=== PATIENT | male | born 1955 | race Caucasian/White ===

== ENCOUNTER 2019-05-18 00:33 | Inpatient (IN) | payer MEDICAID ==
[2019-05-18] VITALS (18 sets, daily range): BP systolic 103–157; BP diastolic 53–79
[~2019-05-18] VITALS: Ht 190.5 cm; Wt 103.1 kg
[2019-05-18] MEDS ORDERED: piperacillin/tazo 3.375gm/50ml 50 ML IV ONE ×2 (01:05→03:00)
--- NOTE | 2019-05-18 01:06 | NUR ---
PT RECEIVED ZOSYN 3.375G AT [facility] AT APPROX 10 PM , PER MD DIETZ WILL RETIME FOR 299.
[2019-05-18] MEDS ORDERED: METF1000 PO (01:18)
[2019-05-18] MEDS ORDERED: INSU100I9 SQ (01:18)
[2019-05-18] MEDS ORDERED: INSU100I31 SQ (01:18)
[2019-05-18] MEDS ORDERED: SITA1TBM7 PO (01:18)
[2019-05-18] MEDS ORDERED: ALB0.5UD IH (01:18)
[2019-05-18] MEDS ORDERED: INSU100V43 SUBCUT (01:18)
[2019-05-18 01:19] LABS: BASOPHILS # (AUTO) 0.1 X10'3 (0-0.2); BASOPHILS % (AUTO) 0.8 % (0-1); EOSINOPHILS # (AUTO) 0.3 X10'3 (0-0.9); EOSINOPHILS % (AUTO) 1.8 % (0-6); HEMATOCRIT 33.6 % (42.0-52.0); HEMOGLOBIN 11.3 g/dl (14.0-17.9); LYMPHOCYTES % (AUTO) 12.4 % (21-51); MEAN CORPUSCULAR HEMOGLOBIN 27.8 PG (27.0-31.0); MEAN CORPUSCULAR HGB CONC 33.5 g/dL (33.0-36.5); MEAN CORPUSCULAR VOLUME 82.9 FL (78-98); MEAN PLATELET VOLUME 8.2 FL (7.4-10.4); MONOCYTES # (AUTO) 1.3 X10'3 (0-0.9); MONOCYTES % (AUTO) 7.8 % (2-12); NEUTROPHILS # (AUTO) 12.4 X10'3 (1.8-7.7); NEUTROPHILS % (AUTO) 77.2 % (42-75); PLATELET COUNT 349 X10'3 (140-440); RED BLOOD COUNT 4.06 X10'6 (4.70-6.10); RED CELL DISTRIBUTION WIDTH 14.7 % (11.5-14.5)
[2019-05-18] MEDS ORDERED: normal saline 1000ml 1,000 ML IV ONE (01:24)
[2019-05-18 01:38] LABS: PARTIAL THROMBOPLASTIN TIME 31 SECONDS (22-32)
[2019-05-18] MEDS ORDERED: morphine 4 MG/ML inj SYRINge IV ONE (01:40)
[2019-05-18] MEDS ORDERED: ondansetron/PF 4mg/2ml inj IV ONE (01:40)
[2019-05-18 01:46] LABS: ALANINE AMINOTRANSFERASE 18 U/L (12-78); ALBUMIN 2.1 G/DL (3.4-5.0); ALBUMIN/GLOBULIN RATIO 0.5 (1.1-1.5); ALKALINE PHOSPHATASE 78 IU/L (46-116); ANION GAP 8 (8-16); ASPARTATE AMINO TRANSFERASE 20 U/L (10-37); BILIRUBIN,TOTAL 0.4 MG/DL (0.1-1.0); BLOOD UREA NITROGEN 9 MG/DL (7-18); BUN/CREATININE RATIO 8.7 (5.4-32.0); CALCIUM 7.4 MG/DL (8.5-10.1); CHLORIDE 105 MMOL/L (99-107); CREATININE 1.03 MG/DL (0.60-1.10); GLUCOSE 306 MG/DL (70-104); MAGNESIUM 1.4 MG/DL (1.5-2.4); POTASSIUM 3.9 MMOL/L (3.5-5.1); SODIUM 138 MMOL/L (135-145); TOTAL CARBON DIOXIDE 25.5 MMOL/L (24-32); TOTAL PROTEIN 6.7 G/DL (6.4-8.2); eGFR 73 ML/MIN
[2019-05-18] MEDS ORDERED: morphine 2 MG/ML inj. syringe IV ONE (01:50)
[2019-05-18] MEDS: normal saline 1000ml 1,000 ML IV SCH ×4 (01:52→22:32)
[2019-05-18] MEDS ORDERED: ondansetron/PF 4mg/2ml inj IV PRN ×2 (01:55→10:40)
[2019-05-18] MEDS ORDERED: morphine 2 MG/ML inj. syringe IV PRN (01:55)
[2019-05-18] MEDS ORDERED: dextrose 50%-water 50ml dispensing syringe IV PRN ×4 (01:55→11:20)
[2019-05-18] MEDS ORDERED: mag hydrox/Alum hydrox/simeth 30ml oral suspension PO PRN (01:55)
[2019-05-18] MEDS ORDERED: MESSAGE TO PHARMACY PO ONE ×2 (01:55→11:20)
[2019-05-18] MEDS ORDERED: glucagon, human recombinant 1mg kit SUBCUT PRN ×2 (01:55→11:20)
[2019-05-18] MEDS ORDERED: dextrose ORAL solution 15 GM/59 ML bottle PO PRN ×4 (01:55→11:20)
[2019-05-18] MEDS ORDERED: albuterol 2.5 MG/3 ML nebule NEB PRN (02:00)
--- NOTE | 2019-05-18 03:10 | NUR ---
Received report from Lars SCHAFER pt ambulated to restroom, then to hospital bed. Hooked pt up to NS@ 100mL/hr, as well as 2L of O2 via NC, assessed pt. Pt has reddened edematous R. testicle, no other skin issues. A&Ox4
--- NOTE | 2019-05-18 03:28 | NUR ---
Spoke with Paz in pharmacy regarding pts Zosyn, pts 0300am dose was ordered to run at 100mL/hr I doubled check to make sure I did not need to run it at 12.5mL/hr. Paz stated to run this dose at the scheduled 100mL/hr and the next dose will resume as normal at the 12.5mL/hr.
[2019-05-18] MEDS: morphine 2 MG/ML inj. syringe IV PRN ×2 (05:33→23:08)
--- NOTE | 2019-05-18 06:05 | NUR ---
gave report to Shhaida SCHAFER pt is attempting to rest, call light and items of freq use within reach, Vanco running@ 200mL/hr
--- NOTE | 2019-05-18 06:12 | NUR ---
Patient in room COREEN 350. I have received report from Regina SCHAFER and had the opportunity to ask questions and assume patient care.
[2019-05-18] MEDS: lactobacillus rhamnosus 10,000 MMU CELLS/CAPSULE PO SCH ×2 (07:18→19:56)
[2019-05-18] MEDS: acetaminophen 325mg tablet PO PRN ×3 (07:29→23:06)
--- NOTE | 2019-05-18 07:30 | NUR ---
paged Dr Alvarado regarding pt going to OR at 0830 and regarding pt having a fever of 102.9. I gave pt 650mg of Tylenol. Also let him know that [facility] called to let us know that pt was positive for gram positive cocci clusters x 4 bottles. Spoke to charge and informed her about results.
[2019-05-18] MEDS: insulin Lispro (HumaLOG) vial - multi-dose SQ SCH ×3 (08:04→19:59)
--- NOTE | 2019-05-18 08:15 | NUR ---
Problems reprioritized. Patient report given, questions answered & plan of care reviewed with Creg RN in recovery.
--- NOTE | 2019-05-18 08:15 | NUR ---
OR tech here to pickle pumper pt to got OR, tech informed of pt's positive results. Pt given 5 units of insulin and still waiting for Dr. Soni to call back.
[2019-05-18] MEDS ORDERED: levoFLOXACIN-Levaquin 500mg/D5 100 ML IV ONE (09:03)
[2019-05-18] MEDS ORDERED: BUPIVAcaine 0.5% inj/PF 30 ML ONE (09:03)
[2019-05-18] MEDS ORDERED: etomidate 2mg/ml inj. ONE (09:06)
[2019-05-18] MEDS ORDERED: sevoflurane 250ml liquid IH ONE (09:06)
[2019-05-18] MEDS ORDERED: midazolam 2 mg/2 ml injection ONE (09:07)
[2019-05-18] MEDS ORDERED: fentaNYL /PF 50mcg/ml 5ml ampule ONE (09:08)
[2019-05-18] MEDS ORDERED: BUPIVAcaine 0.5% inj/PF 30 ml vial IJ ONE (09:43)
--- NOTE | 2019-05-18 10:00 | NUR ---
Problems reprioritized. Patient report given, questions answered & plan of care reviewed with Joselo RN in ICU.
[2019-05-18] MEDS ORDERED: ringers solution, lacted 1,000 ML IV SCH (10:38)
[2019-05-18] MEDS ORDERED: morphine 4 MG/ML inj SYRINge IV PRN ×2 (10:40)
[2019-05-18] MEDS ORDERED: proCHLORperazine 10 MG/2 ml inj IV PRN (10:40)
[2019-05-18] MEDS ORDERED: meperidine/PF 25mg/ml syringe IV PRN ×3 (10:40)
[2019-05-18] MEDS ORDERED: insulin regular, human 10 units/0.1 ml syringe IV ONE (10:40)
--- NOTE | 2019-05-18 10:42 | NUR ---
Received from OR via ICU BED, accompanied by AnestheOlogist DEANNE and report given by Anesthesiolgist. PATIENT WITH 20G PIV IN RIGHT UE AND 18G PIV IN LEFT UE RUNNING LR AT 100. MEDICATED BY ANESTHESIA. PATIENT WITH JOCK CUP DRESSING THAT HAS SHADOWING OF PINK DRAINAGE PRESENT. CINTRON CATHETER PRESENT WITH 500C CLEAR YELLOW URINE PRESENT. VSS AT THIS TIME. 10L MASK ON WITH 100% SATURATIONS. Addendum: 05/18/19 at 1058 by Reymundo Garrison RN, RN Amended: Links added.
[2019-05-18] MEDS ORDERED: piperacillin/tazo 3.375gm/50ml 50 ML IV SCH (11:00)
--- NOTE | 2019-05-18 11:12 | NUR ---
ALL CRITERIA FOR TRANSFER TO THE FLOOR HAS BEEN ACHIEVED. VSS. BED LOW, CALL LIGHT AND VS. SET IN PLACE. RN PRESENT TO ACCEPT CARE. PATIENT RESTING COMFORTABLY IN BED. BELONGINGS SENT WITH PATIENT. DRESSINGS CDI. GILMAR WILKINSON PRESENT TO ASSUME CARE OF PATIENT. CALLED PHARMACY FOR INSULIN. GILMAR WILKINSON TO ADMINISTER. VSS, MEDICATED FOR PAIN. Addendum: 05/18/19 at 1117 by Reymundo Lewis - GILMAR SCHAFER Amended: Links added.
--- NOTE | 2019-05-18 11:13 | NUR ---
Received pt from recovery nurseReymundo RN. Pt is 100% SpO2 on simple face mask, drowsy, BP 144/64 (84), sinus tach at 107 bpm.
--- NOTE | 2019-05-18 11:15 | NUR ---
Dr. Pyle in to see pt.
[2019-05-18] MEDS ORDERED: insulin Lispro (HumaLOG) vial - multi-dose SQ SCH (11:20)
[2019-05-18] MEDS ORDERED: fentaNYL/PF 50MCG/1 ML 2ML syringe ONE (11:41)
[2019-05-18] MEDS ORDERED: rocuronium 10mg/ml inj IV ONE (11:42)
[2019-05-18] MEDS ORDERED: glycopyrrolate 0.2mg/ml inj ONE (11:42)
[2019-05-18] MEDS ORDERED: LIDOcaine 2% (20mg/ml) 5ml vial ONE (11:42)
[2019-05-18] MEDS ORDERED: ondansetron/PF 4mg/2ml inj ONE (11:42)
[2019-05-18] MEDS ORDERED: propofol inj 20 ML IV ONE (11:42)
[2019-05-18] MEDS ORDERED: neostigmine methylsulfate 1 MG/ML 10ml vial ONE (11:42)
[2019-05-18] MEDS: ceFAZolin 1GM/D5W- ADD-VANTAGE 50 ML IV SCH ×2 (12:16→16:12)
--- NOTE | 2019-05-18 12:36 | NUR ---
Regular insulin has not arrived from pharmacy. Hyperglycemia protocol ordered.
--- NOTE | 2019-05-18 16:25 | NUR ---
Malnutrition/DM consults: Pt admit w/ scrotal cellulitis and sepsis s/p R orchiectomy per MD note. A1C 11.7. PO 25% carbs first meals other food groups not documented. Pt currently coming out of anaesthesia per MD note. Given pt current wt and lack of further PO hx at this time pt does not meet minimum malnutrition criteria; will continue to monitor this admit. Pt will needs DM and high protein eds once more appropriate post-op. LBM 05/16. Will continue to monitor. Rec: 1. continue carb controlled diet 2. monitor for ONS needs 3. DM/high protein eds once appropriate prior to d/c 4. MVI for wound healing 5. wt per rx Addendum: 05/18/19 at [address] Amended: Links added.
--- NOTE | 2019-05-18 18:20 | NUR ---
Patient in room ICU 2040. I have received report from GILMAR Josue and had the opportunity to ask questions and assume patient care. Patient appears to be sleeping at time of report. Berg catheter in place, patent and draining. patient with PIV's x2 with normal saline infusing at 100ml/hr as ordered.
--- NOTE | 2019-05-18 18:25 | NUR ---
Problems reprioritized. Patient report given, questions answered & plan of care reviewed with GILMAR James.
--- NOTE | 2019-05-18 20:00 | NUR ---
Patient refusing linen change and bed bath for tonight. Patient irritated with staff waking him up to do assessments and patient care. Patient wakes up then falls back to sleep. While RN was checking his IV patient states "I am going to fucking flip out next time you wake me up." Patient educated on patient care activities. Patient refused to be repositioned with pillows, educated on reason for use to prevent skin breakdown.
[2019-05-18] MEDS: insulin glargine (Lantus) pen - multi-dose SQ SCH (20:02)
[2019-05-18] MEDS ORDERED: insulin glargine (Lantus) pen - multi-dose SQ SCH (21:00)
--- NOTE | 2019-05-18 23:00 | NUR ---
Patient moaning in sleep. When asked patient at first states he is not in pain. Patient states that "I need to pee." reminded that he has a urinary catheter in place and that he is making and draining urine. Patient states "okay". Patient appears agitated with patient care activities. Elevated temperature assessed. Told patient that he needed Tylenol for his fever, patient stated "I dont want Tylenol." educated again on reason for medication, patient agreed to take medication. Patient then states that he is having pain 10/10 when asked for location of his pain he states "my scrotum". Patient falls back to sleep, snoring while sleeping. Morphine for moderate pain level administered secondary to nursing judgement.
[2019-05-19] VITALS (24 sets, daily range): BP systolic 106–156; BP diastolic 62–90
[2019-05-19] MEDS: ceFAZolin 1GM/D5W- ADD-VANTAGE 50 ML IV SCH ×3 (00:15→16:13)
[2019-05-19] MEDS ORDERED: VANCOMYCIN LEVEL IV ONE (05:30)
--- NOTE | 2019-05-19 06:30 | NUR ---
Problems reprioritized. Patient report given, questions answered & plan of care reviewed with GILMAR Mariano.
[2019-05-19 06:47] LABS: BASOPHILS # (AUTO) 0.1 X10'3 (0-0.2); BASOPHILS % (AUTO) 0.7 % (0-1); EOSINOPHILS # (AUTO) 0.3 X10'3 (0-0.9); EOSINOPHILS % (AUTO) 2.5 % (0-6); HEMATOCRIT 34.4 % (42.0-52.0); HEMOGLOBIN 11.4 g/dl (14.0-17.9); LYMPHOCYTES # (AUTO) 2.3 X10'3 (1.1-4.8); MEAN CORPUSCULAR HEMOGLOBIN 27.6 PG (27.0-31.0); MEAN CORPUSCULAR VOLUME 83.6 FL (78-98); MEAN PLATELET VOLUME 8.3 FL (7.4-10.4); MONOCYTES % (AUTO) 7.3 % (2-12); NEUTROPHILS # (AUTO) 9.9 X10'3 (1.8-7.7); NEUTROPHILS % (AUTO) 72.5 % (42-75); PLATELET COUNT 342 X10'3 (140-440); RED BLOOD COUNT 4.12 X10'6 (4.70-6.10); RED CELL DISTRIBUTION WIDTH 15.1 % (11.5-14.5); WHITE BLOOD COUNT 13.6 X10'3 (4.5-11.0)
[2019-05-19 07:02] LABS: ALANINE AMINOTRANSFERASE 14 U/L (12-78); ALBUMIN/GLOBULIN RATIO 0.4 (1.1-1.5); ALKALINE PHOSPHATASE 79 IU/L (46-116); ANION GAP 9 (8-16); ASPARTATE AMINO TRANSFERASE 15 U/L (10-37); BILIRUBIN,TOTAL 0.4 MG/DL (0.1-1.0); BLOOD UREA NITROGEN 7 MG/DL (7-18); BUN/CREATININE RATIO 7.9 (5.4-32.0); CHLORIDE 104 MMOL/L (99-107); CREATININE 0.89 MG/DL (0.60-1.10); GLUCOSE 247 MG/DL (70-104); POTASSIUM 3.7 MMOL/L (3.5-5.1); SODIUM 138 MMOL/L (135-145); TOTAL PROTEIN 7.1 G/DL (6.4-8.2); eGFR 87 ML/MIN
[2019-05-19] MEDS: normal saline 1000ml 1,000 ML IV SCH (07:52)
[2019-05-19] MEDS: lactobacillus rhamnosus 10,000 MMU CELLS/CAPSULE PO SCH ×2 (08:09→19:55)
[2019-05-19] MEDS: insulin Lispro (HumaLOG) vial - multi-dose SQ SCH ×2 (08:58→13:11)
[2019-05-19] MEDS: morphine 2 MG/ML inj. syringe IV PRN ×3 (14:27→20:23)
--- NOTE | 2019-05-19 18:31 | NUR ---
Patient in room ICU 2040. I have received report from Madison Lr RN and had the opportunity to ask questions and assume patient care.
[2019-05-19] MEDS: insulin glargine (Lantus) pen - multi-dose SQ SCH (21:43)
--- NOTE | 2019-05-19 22:27 | NUR ---
Dinner INSULIN MISSED dinner Humalog was missed. pt recieved dinner tray late and did not have humalog in [facility], sent message to pharmacy and called multiple times. by the time the insulin was on the unit it was time for 2100 BG test. called Brittney De La Fuente SENIOR WATER RESOURCES ENGINEER with this information, she advised that i just give lantus for coverage.
[2019-05-20] VITALS (19 sets, daily range): BP systolic 117–163; BP diastolic 61–95
[2019-05-20] MEDS: ceFAZolin 1GM/D5W- ADD-VANTAGE 50 ML IV SCH ×2 (00:06→08:07)
[2019-05-20] MEDS: normal saline 1000ml 1,000 ML IV SCH (00:16)
[2019-05-20 04:56] LABS: BASOPHILS # (AUTO) 0.1 X10'3 (0-0.2); BASOPHILS % (AUTO) 0.6 % (0-1); EOSINOPHILS # (AUTO) 0.3 X10'3 (0-0.9); EOSINOPHILS % (AUTO) 1.9 % (0-6); HEMOGLOBIN 12.1 g/dl (14.0-17.9); LYMPHOCYTES # (AUTO) 1.7 X10'3 (1.1-4.8); LYMPHOCYTES % (AUTO) 13.2 % (21-51); MEAN CORPUSCULAR HEMOGLOBIN 27.9 PG (27.0-31.0); MEAN CORPUSCULAR HGB CONC 33.7 g/dL (33.0-36.5); MEAN CORPUSCULAR VOLUME 82.7 FL (78-98); MEAN PLATELET VOLUME 8.3 FL (7.4-10.4); MONOCYTES # (AUTO) 1.1 X10'3 (0-0.9); MONOCYTES % (AUTO) 8.2 % (2-12); NEUTROPHILS # (AUTO) 10.1 X10'3 (1.8-7.7); NEUTROPHILS % (AUTO) 76.1 % (42-75); PLATELET COUNT 361 X10'3 (140-440); RED BLOOD COUNT 4.35 X10'6 (4.70-6.10); RED CELL DISTRIBUTION WIDTH 15.2 % (11.5-14.5); WHITE BLOOD COUNT 13.2 X10'3 (4.5-11.0)
[2019-05-20 05:13] LABS: ALANINE AMINOTRANSFERASE 13 U/L (12-78); ALBUMIN 1.9 G/DL (3.4-5.0); ALBUMIN/GLOBULIN RATIO 0.3 (1.1-1.5); ALKALINE PHOSPHATASE 86 IU/L (46-116); ANION GAP 9 (8-16); ASPARTATE AMINO TRANSFERASE 16 U/L (10-37); BILIRUBIN,TOTAL 0.4 MG/DL (0.1-1.0); BLOOD UREA NITROGEN 7 MG/DL (7-18); BUN/CREATININE RATIO 6.9 (5.4-32.0); CALCIUM 8.5 MG/DL (8.5-10.1); CHLORIDE 101 MMOL/L (99-107); CREATININE 1.01 MG/DL (0.60-1.10); GLUCOSE 281 MG/DL (70-104); SODIUM 138 MMOL/L (135-145); TOTAL CARBON DIOXIDE 27.6 MMOL/L (24-32); TOTAL PROTEIN 7.5 G/DL (6.4-8.2); eGFR 75 ML/MIN
--- NOTE | 2019-05-20 06:44 | NUR ---
Problems reprioritized. Patient report given, questions answered & plan of care reviewed with Jackelyn Stone RN.
--- NOTE | 2019-05-20 06:49 | NUR ---
Patient in room ICU 2040. I have received report from GILMAR Arboleda and had the opportunity to ask questions and assume patient care.
[2019-05-20] MEDS ORDERED: VANCOMYCIN LEVEL IV ONE (07:30)
[2019-05-20] MEDS: lactobacillus rhamnosus 10,000 MMU CELLS/CAPSULE PO SCH ×2 (08:08→21:51)
[2019-05-20] MEDS: insulin Lispro (HumaLOG) vial - multi-dose SQ SCH ×2 (08:31→15:09)
[2019-05-20] MEDS: morphine 2 MG/ML inj. syringe IV PRN ×3 (09:29→22:03)
[2019-05-20] MEDS ORDERED: JANUMET PO SCH (11:40)
[2019-05-20] MEDS ORDERED: insulin Lispro (HumaLOG) vial - multi-dose SQ SCH (12:00)
--- NOTE | 2019-05-20 14:39 | NUR ---
Reassessment: Pt admit with scrotal cellulitis and sepsis s/p right orchiectomy per MD note. A1C 11.7, will need written DM education handout with verbal review and referral to Sunday DM education class. Will also need written protein education handout r/t surgical wound heal. Patient is eating well, 100% PO intake of carb controlled diet. LBM 05/16. Will continue to monitor. Recommend: 1. continue carb controlled diet 2. double protein per pt request 3. DM/high protein eds once appropriate prior to d/c 4. wt per rx Addendum: 05/20/19 at [address] Amended: Links added.
--- NOTE | 2019-05-20 14:59 | NUR ---
Report received from ELECTRIC DETECTOR OPERATORGILMAR Xiong
--- NOTE | 2019-05-20 14:59 | NUR ---
Problems reprioritized. Patient report given, questions answered & plan of care reviewed with Michellesurgical endoscopist.
--- NOTE | 2019-05-20 15:00 | NUR ---
confirmed with Dr.Romero cherry to change testicular dressing; 4x4s within jock strap saturated with old dried drainage,carefully removed after loosening with sterile saline,meaghan drain in place,sutures intact replaced 4x4s and jock strap elastic to hold in place,pt tolerated well
--- NOTE | 2019-05-20 18:35 | NUR ---
Patient in room COREEN 352. I have received report from Chip SCHAFER and had the opportunity to ask questions and assume patient care.
--- NOTE | 2019-05-20 18:50 | NUR ---
Problems reprioritized. Patient report given, questions answered & plan of care reviewed with Bonnie SCHAFER.
[2019-05-20] MEDS ORDERED: metFORMIN 500mg tablet PO SCH (20:00)
[2019-05-20] MEDS: insulin glargine (Lantus) pen - multi-dose SQ SCH (22:45)
[2019-05-21] VITALS: BP 149/77
[2019-05-21] MEDS: morphine 2 MG/ML inj. syringe IV PRN ×2 (02:32→19:29)
[2019-05-21 05:05] LABS: BASOPHILS # (AUTO) 0.1 X10'3 (0-0.2); BASOPHILS % (AUTO) 1.3 % (0-1); EOSINOPHILS # (AUTO) 0.5 X10'3 (0-0.9); EOSINOPHILS % (AUTO) 4.6 % (0-6); HEMATOCRIT 32.3 % (42.0-52.0); HEMOGLOBIN 10.8 g/dl (14.0-17.9); LYMPHOCYTES # (AUTO) 1.9 X10'3 (1.1-4.8); LYMPHOCYTES % (AUTO) 16.8 % (21-51); MEAN CORPUSCULAR HEMOGLOBIN 27.6 PG (27.0-31.0); MEAN CORPUSCULAR HGB CONC 33.5 g/dL (33.0-36.5); MEAN CORPUSCULAR VOLUME 82.5 FL (78-98); MEAN PLATELET VOLUME 8.5 FL (7.4-10.4); MONOCYTES % (AUTO) 9.1 % (2-12); NEUTROPHILS # (AUTO) 7.6 X10'3 (1.8-7.7); NEUTROPHILS % (AUTO) 68.2 % (42-75); PLATELET COUNT 344 X10'3 (140-440); RED BLOOD COUNT 3.91 X10'6 (4.70-6.10); RED CELL DISTRIBUTION WIDTH 15.1 % (11.5-14.5); WHITE BLOOD COUNT 11.1 X10'3 (4.5-11.0)
[2019-05-21 05:41] LABS: ALANINE AMINOTRANSFERASE 13 U/L (12-78); ALBUMIN 1.7 G/DL (3.4-5.0); ALBUMIN/GLOBULIN RATIO 0.3 (1.1-1.5); ALKALINE PHOSPHATASE 79 IU/L (46-116); ANION GAP 8 (8-16); ASPARTATE AMINO TRANSFERASE 16 U/L (10-37); BILIRUBIN,TOTAL 0.4 MG/DL (0.1-1.0); BLOOD UREA NITROGEN 8 MG/DL (7-18); BUN/CREATININE RATIO 9.9 (5.4-32.0); CHLORIDE 100 MMOL/L (99-107); CREATININE 0.81 MG/DL (0.60-1.10); GLUCOSE 222 MG/DL (70-104); POTASSIUM 3.8 MMOL/L (3.5-5.1); SODIUM 135 MMOL/L (135-145); TOTAL CARBON DIOXIDE 27.4 MMOL/L (24-32); eGFR > 90 ML/MIN
--- NOTE | 2019-05-21 05:48 | NUR ---
Patient in room COREEN 352. I have received report from Chip SCHAFER and had the opportunity to ask questions and assume patient care.
--- NOTE | 2019-05-21 06:17 | NUR ---
Reported off to Chip SCHAFER
--- NOTE | 2019-05-21 06:48 | NUR ---
Patient in room CORE[facility] 352. I have received report from Bonnie SCHAFER and had the opportunity to ask questions and assume patient care.
[2019-05-21 07:00] VITALS: BP 129/77
[2019-05-21] MEDS: lactobacillus rhamnosus 10,000 MMU CELLS/CAPSULE PO SCH ×3 (08:00→19:28)
[2019-05-21] MEDS: insulin Lispro (HumaLOG) vial - multi-dose SQ SCH ×3 (08:20→19:35)
[2019-05-21] MEDS: magnesium hydroxide 30ml (MOM) UD suspension PO PRN (10:07)
--- NOTE | 2019-05-21 10:13 | NUR ---
Milk of magnesia given for constipation. I have told the patient that Dr. Perry's office would like him to fill out and sign the paperworks needed to get the follow up appointment scheduled. Patient states "I'll do it later!" Patient appears sleepy at this time
[2019-05-21 11:00] VITALS: BP 129/87
--- NOTE | 2019-05-21 13:11 | NUR ---
Patient just ate lunch before the blood sugar was checked. Blood sugar was 163mg/dl post meal. Will cover it based on nutritional dose only at this time. Charge nurse Oneyda mcmahon.
--- NOTE | 2019-05-21 14:53 | NUR ---
F/u: Pt seen by RD for written/verbal DM and high protein eds w/ RD contact information provided. Pt reports uses insulin and passive when RD encouraged getting proper refills as prescribed to help manage DM. PO 100% carb controlled meals meeting needs. Declines further proteins in addition to double proteins already receiving at this time. LBM 05/15; received MoM today for initial bowel care. Will continue to monitor for additional bowel care needs. Recommend: 1. continue carb controlled diet 2. double protein per pt request 3. wt per rx Addendum: 05/21/19 at [address] Amended: Links added.
--- NOTE | 2019-05-21 15:52 | NUR ---
Patient does not want to ambulate and expressed concern of being too weak. Order received from Dr. Pyle to have PT eval
--- NOTE | 2019-05-21 16:08 | NUR ---
GILMAR Saunders, stated in report that pt is at 10L/NC w/ sats in 93%. Dr. Pyle notified. CXR & ABGs ordered. Pt agitated and mildly aggressive, but A&O.
[2019-05-21 16:41] LABS: ABG BASE EXCESS 2.6 mmol/L (-2.0-3.0); ABG HCO3 26.4 mmol/L (22.0-26.0); ABG PCO2 (T) 38.2 mmHg (35.0-45.0); ABG PH (T) 7.458 (7.350-7.450); ABG PO2 (T) 73.3 mmHg (83-108); ALLEN'S TEST Positive; FCOHb 1.2 % (0.5-1.5); FLOW 10 L/min; FO2Hb 94.8 % (94-100); TOTAL HEMOGLOBIN 14.7 G/dl (14.0-17.9)
--- NOTE | 2019-05-21 18:49 | NUR ---
Problems reprioritized. Patient report given, questions answered & plan of care reviewed with Bonnie SCHAFER.
[2019-05-21 19:00] VITALS: BP 156/78
--- NOTE | 2019-05-21 20:10 | NUR ---
Patent ate 41 carbs for dinner. Blood sugars appear to be trending downwards today (0700 - 181, 1200 - 163, 1700 - 92. Called director of agriculture to see if Patient should still receive the dose of 14 (per protocol). Engine Lathe Set Up Operator Tool requested another Blood sugar to be drawn. Patient has since had to x cartoon of non-fat milk and blood sugar up to 215. Will draw HS blood sugar and reevaluate from there
[2019-05-21] MEDS ORDERED: HYDROcodone/acetaminophen 5mg/325mg tablet PO PRN (20:45)
[2019-05-21] MEDS: insulin glargine (Lantus) pen - multi-dose SQ SCH (23:11)
[2019-05-22] VITALS: BP 150/70
[2019-05-22] MEDS: HYDROcodone/acetaminophen 10/325mg tab PO PRN ×3 (01:54→14:06)
[2019-05-22 06:01] LABS: BASOPHILS # (AUTO) 0.1 X10'3 (0-0.2); EOSINOPHILS # (AUTO) 0.6 X10'3 (0-0.9); EOSINOPHILS % (AUTO) 5.4 % (0-6); HEMATOCRIT 33.5 % (42.0-52.0); HEMOGLOBIN 11.1 g/dl (14.0-17.9); LYMPHOCYTES % (AUTO) 17.7 % (21-51); MEAN CORPUSCULAR HEMOGLOBIN 27.5 PG (27.0-31.0); MEAN CORPUSCULAR HGB CONC 33.1 g/dL (33.0-36.5); MEAN CORPUSCULAR VOLUME 83.2 FL (78-98); MEAN PLATELET VOLUME 8.9 FL (7.4-10.4); MONOCYTES # (AUTO) 0.9 X10'3 (0-0.9); MONOCYTES % (AUTO) 8.1 % (2-12); NEUTROPHILS # (AUTO) 7.8 X10'3 (1.8-7.7); NEUTROPHILS % (AUTO) 67.8 % (42-75); PLATELET COUNT 388 X10'3 (140-440); RED BLOOD COUNT 4.03 X10'6 (4.70-6.10); RED CELL DISTRIBUTION WIDTH 15.2 % (11.5-14.5); WHITE BLOOD COUNT 11.5 X10'3 (4.5-11.0)
--- NOTE | 2019-05-22 06:01 | NUR ---
Dressing change completed last night. Removed old dried gauze using saline, cleansed with normal saline and then did a wet-to-dry dressing change per charge nurseTiffany Colmenares now has mesh panties on as refused to wear jorge a adame. Addendum: 05/22/19 at 0603 by Bonnie Adorno RN Amended: Links added.
--- NOTE | 2019-05-22 06:30 | NUR ---
Reported off to Ankita SCHAFER. At this time sats were 98% on 6L hi flow NC.
[2019-05-22 06:38] LABS: ALANINE AMINOTRANSFERASE 17 U/L (12-78); ALBUMIN 1.8 G/DL (3.4-5.0); ALBUMIN/GLOBULIN RATIO 0.3 (1.1-1.5); ALKALINE PHOSPHATASE 80 IU/L (46-116); ANION GAP 5 (8-16); ASPARTATE AMINO TRANSFERASE 23 U/L (10-37); BILIRUBIN,TOTAL 0.4 MG/DL (0.1-1.0); BLOOD UREA NITROGEN 12 MG/DL (7-18); BUN/CREATININE RATIO 15.2 (5.4-32.0); CALCIUM 7.9 MG/DL (8.5-10.1); CHLORIDE 103 MMOL/L (99-107); CREATININE 0.79 MG/DL (0.60-1.10); GLUCOSE 163 MG/DL (70-104); POTASSIUM 3.9 MMOL/L (3.5-5.1); SODIUM 137 MMOL/L (135-145); TOTAL CARBON DIOXIDE 28.6 MMOL/L (24-32); TOTAL PROTEIN 7.1 G/DL (6.4-8.2); eGFR > 90 ML/MIN
[2019-05-22 07:11] VITALS: BP 110/74
[2019-05-22] MEDS: lactobacillus rhamnosus 10,000 MMU CELLS/CAPSULE PO SCH ×2 (10:22→19:46)
[2019-05-22] MEDS: insulin Lispro (HumaLOG) vial - multi-dose SQ SCH ×3 (10:28→19:46)
--- NOTE | 2019-05-22 10:49 | NUR ---
ordered crystal light packets
--- NOTE | 2019-05-22 16:33 | NUR ---
Spoke to MD Yanes and [place]. There is no reason why pt. cannot have MOM per MD Yanes. Colace and a ducolax suppository ordered for constipation. requesting nursing encourage pt. to ambulate. New orders. F/C BELKIS'wilder. Lab called to report gram positive cocci in clusters from anaerobic bottle after 111 hours. Sample taken from RA. Addendum: 05/22/19 at 1647 by Ankita Gore RN MD Pyle- apologize for misspelled name.
[2019-05-22] MEDS ORDERED: bisacodyl 10mg suppository rectal RC PRN (16:40)
--- NOTE | 2019-05-22 16:45 | NUR ---
Orlando plans to remove [place] drain in his office Sunday. Please have pt. f/u with him after discharge.
--- NOTE | 2019-05-22 17:05 | NUR ---
8 mL of normal saline withdrawn from the balloon. Addendum: 05/22/19 at 1706 by Darling LARA Amended: Links added.
--- NOTE | 2019-05-22 17:06 | NUR ---
250 mL in rubi catheter bag when dicontinued. Addendum: 05/22/19 at 1707 by Darling LARA Amended: Links added.
[2019-05-22] MEDS: magnesium hydroxide 30ml (MOM) UD suspension PO PRN (17:34)
--- NOTE | 2019-05-22 17:50 | NUR ---
Pt. taken off floor to CT, tele box notified of pt's departure from unit.
--- NOTE | 2019-05-22 18:15 | NUR ---
Patient in room C[facility] 352. I have received report from Ankita SCHAFER and had the opportunity to ask questions and assume patient care.
--- NOTE | 2019-05-22 18:19 | NUR ---
Pt. still downstairs in CT. Gave report to Oswaldo SCHAFER. He aware FC has been removed and that pt. is a check void.
[2019-05-22] MEDS: docusate sod 100mg capsule PO SCH (19:46)
[2019-05-22 20:00] VITALS: BP 140/80
[2019-05-22] MEDS: insulin glargine (Lantus) pen - multi-dose SQ SCH (21:42)
[2019-05-23] VITALS: BP 136/66
[2019-05-23] MEDS: HYDROcodone/acetaminophen 10/325mg tab PO PRN ×2 (02:45→15:23)
[2019-05-23 06:05] LABS: BASOPHILS # (AUTO) 0.1 X10'3 (0-0.2); BASOPHILS % (AUTO) 0.5 % (0-1); EOSINOPHILS # (AUTO) 0.6 X10'3 (0-0.9); EOSINOPHILS % (AUTO) 3.8 % (0-6); HEMATOCRIT 37.7 % (42.0-52.0); HEMOGLOBIN 12.6 g/dl (14.0-17.9); LYMPHOCYTES # (AUTO) 2.2 X10'3 (1.1-4.8); LYMPHOCYTES % (AUTO) 13.1 % (21-51); MEAN CORPUSCULAR HEMOGLOBIN 27.3 PG (27.0-31.0); MEAN CORPUSCULAR HGB CONC 33.5 g/dL (33.0-36.5); MEAN CORPUSCULAR VOLUME 81.6 FL (78-98); MEAN PLATELET VOLUME 8.8 FL (7.4-10.4); MONOCYTES # (AUTO) 1.2 X10'3 (0-0.9); MONOCYTES % (AUTO) 7.6 % (2-12); NEUTROPHILS # (AUTO) 12.4 X10'3 (1.8-7.7); PLATELET COUNT 526 X10'3 (140-440); RED BLOOD COUNT 4.62 X10'6 (4.70-6.10); RED CELL DISTRIBUTION WIDTH 15.3 % (11.5-14.5); WHITE BLOOD COUNT 16.5 X10'3 (4.5-11.0)
[2019-05-23 06:20] LABS: ALANINE AMINOTRANSFERASE 20 U/L (12-78); ALBUMIN/GLOBULIN RATIO 0.3 (1.1-1.5); ALKALINE PHOSPHATASE 89 IU/L (46-116); ANION GAP 10 (8-16); ASPARTATE AMINO TRANSFERASE 27 U/L (10-37); BILIRUBIN,TOTAL 0.4 MG/DL (0.1-1.0); BLOOD UREA NITROGEN 13 MG/DL (7-18); BUN/CREATININE RATIO 13.8 (5.4-32.0); CALCIUM 8.9 MG/DL (8.5-10.1); CHLORIDE 99 MMOL/L (99-107); CREATININE 0.94 MG/DL (0.60-1.10); GLUCOSE 163 MG/DL (70-104); SODIUM 135 MMOL/L (135-145); TOTAL CARBON DIOXIDE 25.7 MMOL/L (24-32); TOTAL PROTEIN 7.9 G/DL (6.4-8.2); eGFR 81 ML/MIN
--- NOTE | 2019-05-23 06:33 | NUR ---
Problems reprioritized. Patient report given, questions answered & plan of care reviewed with Shahida SCHAFER.
--- NOTE | 2019-05-23 06:55 | NUR ---
Patient in room C[facility] 352. I have received report from Oswaldo SCHAFER and had the opportunity to ask questions and assume patient care.
[2019-05-23 07:00] VITALS: BP 106/50
[2019-05-23 07:07] LABS: TOTAL CELLS COUNTED 100
[2019-05-23 07:08] LABS: ANISOCYTOSIS 1+; PLATELET ESTIMATE INCREASED; POLYCHROMASIA 1+; TOXIC GRANULATION 1+
--- NOTE | 2019-05-23 07:15 | NUR ---
Pt is tired and a bit grumpy. He is upset because he believes this hospital is horrible, he hates the food, the service and the care. I asked what can I do to make it better he said nothing. He stated that I was OK, nice, but hated this hospital. I told him he looks 100% better than the time he was admitted. He said he felt better but it was not because of our food. I told him I was going to be back to finish my assessment and he said OK.
[2019-05-23] MEDS: docusate sod 100mg capsule PO SCH ×2 (09:03→19:43)
[2019-05-23] MEDS: lactobacillus rhamnosus 10,000 MMU CELLS/CAPSULE PO SCH ×2 (09:03→19:43)
[2019-05-23] MEDS: insulin Lispro (HumaLOG) vial - multi-dose SQ SCH ×3 (09:37→18:58)
--- NOTE | 2019-05-23 18:00 | NUR ---
Patient in room 352. I have received report from Shahida SCHAFER and had the opportunity to ask questions and assume patient care.
[2019-05-23 20:00] VITALS: BP 134/68
[2019-05-23] MEDS ORDERED: sulfamethoxazole/trimethoprim DS (800/160mg) tablet PO SCH (20:00)
[2019-05-23] MEDS: insulin glargine (Lantus) pen - multi-dose SQ SCH (21:52)
[2019-05-23] MEDS ORDERED: LORazepam 2 mg/ml vial IV ONE (23:40)
[2019-05-23] MEDS ORDERED: LORazepam 2 mg/ml vial ONE (23:46)
[2019-05-23 23:50] LABS: ABG BASE EXCESS -4.8 mmol/L (-2.0-3.0); ABG HCO3 18.4 mmol/L (22.0-26.0); ABG OXYGEN SATURATION 78.6 % (95-98); ABG PH (T) 7.398 (7.350-7.450); ABG PO2 (T) 47.7 mmHg (83-108); FCOHb 0.7 % (0.5-1.5); FLOW 15 L/min; FMetHb 0.1 % (0.3-1.12); PATIENT TEMPERATURE 38.6; RESPIRATORY RATE (OBSERVED) 32 b/min; TOTAL HEMOGLOBIN 12.4 G/dl (14.0-17.9)
[2019-05-23 23:56] LABS: EOSINOPHILS # (AUTO) 0.7 X10'3 (0-0.9); MONOCYTES # (AUTO) 1.7 X10'3 (0-0.9)
[2019-05-23 23:57] LABS: BASOPHILS # (AUTO) 0.3 X10'3 (0-0.2); BASOPHILS % (AUTO) 1.3 % (0-1); EOSINOPHILS % (AUTO) 3.5 % (0-6); HEMATOCRIT 36.7 % (42.0-52.0); LYMPHOCYTES # (AUTO) 5.6 X10'3 (1.1-4.8); LYMPHOCYTES % (AUTO) 26.2 % (21-51); MEAN CORPUSCULAR HEMOGLOBIN 27.4 PG (27.0-31.0); MEAN CORPUSCULAR HGB CONC 32.8 g/dL (33.0-36.5); MEAN CORPUSCULAR VOLUME 83.4 FL (78-98); MEAN PLATELET VOLUME 8.7 FL (7.4-10.4); MONOCYTES % (AUTO) 7.9 % (2-12); NEUTROPHILS # (AUTO) 13.2 X10'3 (1.8-7.7); NEUTROPHILS % (AUTO) 61.1 % (42-75); PLATELET COUNT 649 X10'3 (140-440); RED CELL DISTRIBUTION WIDTH 15.4 % (11.5-14.5); WHITE BLOOD COUNT 21.5 X10'3 (4.5-11.0)
[2019-05-24] VITALS (24 sets, daily range): BP systolic 80–180; BP diastolic 38–79
[2019-05-24 00:10] LABS: D-DIMER 3.38 MG/L FEU (0-0.50)
[2019-05-24] MEDS ORDERED: midazolam 2 mg/2 ml injection ONE (00:21)
[2019-05-24] MEDS ORDERED: propofol 1000mg/100ml bottle 100 ML IV ONE (00:25)
--- NOTE | 2019-05-24 00:35 | NUR ---
Patient had sudden complaint of shortness of breath. O2% reported at 86%. Legs found mottled. Rapid was called. Patient transferred to CICU.
[2019-05-24 00:38] LABS: PARTIAL THROMBOPLASTIN TIME 31 SECONDS (22-32)
[2019-05-24] MEDS ORDERED: MIDAZolam 5mg/ml 2ml vial IV ONE (00:40)
[2019-05-24] MEDS ORDERED: LORazepam 2 mg/ml vial IV ONE (00:40)
--- NOTE | 2019-05-24 00:45 | NUR ---
Pt transferred to CICU via gurney after rapid response. Heart rate in the 130's, BP systolic as high as 220 and pt very SOB with O2 saturation at 82%. Dr. Villar and Dr. Boyd at bedside, decision made to intubate pt. Etomidate 40, Miguel 100, and Versed 6 given with 8.0 ETT 22 at the teeth with bilateral breath sounds. Order from Rodolfo Singh for Hydralazine, Solu Medrol, Vanco, and a 1 L bolus of NS followed 100/hr maintenance. Repeat lactic ordered for 0200.
[2019-05-24 00:46] LABS: ANION GAP 14 (8-16); BLOOD UREA NITROGEN 15 MG/DL (7-18); BUN/CREATININE RATIO 12.7 (5.4-32.0); CALCIUM 8.4 MG/DL (8.5-10.1); CHLORIDE 99 MMOL/L (99-107); CREATININE 1.18 MG/DL (0.60-1.10); GLUCOSE 208 MG/DL (70-104); MAGNESIUM 2.1 MG/DL (1.5-2.4); PHOSPHORUS 2.6 MG/DL (2.3-4.5); POTASSIUM 4.2 MMOL/L (3.5-5.1); SODIUM 135 MMOL/L (135-145); TOTAL CARBON DIOXIDE 21.9 MMOL/L (24-32); eGFR 63 ML/MIN
[2019-05-24] MEDS ORDERED: midazolam 100mg in NS 100ml 100 ML IV PRN (00:48)
[2019-05-24 01:00] LABS: ABG BASE EXCESS 0.9 mmol/L (-2.0-3.0); ABG HCO3 25.6 mmol/L (22.0-26.0); ABG PCO2 (T) 45.9 mmHg (35.0-45.0); ABG PH (T) 7.375 (7.350-7.450); ABG PO2 (T) 113.2 mmHg (83-108); ALLEN'S TEST Positive; FCOHb 0.5 % (0.5-1.5); FMetHb 0.1 % (0.3-1.12); FO2Hb 96.4 % (94-100); MINUTE VOLUME 10 L/min; PATIENT TEMPERATURE 39.6; PEEP 5 cm H2O; RESPIRATORY RATE 18 b/min; RESPIRATORY RATE (OBSERVED) 18 b/min; TIDAL VOLUME 500 mL
[2019-05-24] MEDS ORDERED: methylPREDNISolone sod succ 125mg/2ml vial IV ONE (01:00)
[2019-05-24] MEDS ORDERED: acetaminophen 1,000mg/100ml IV 100 ML IV ONE (01:10)
[2019-05-24] MEDS ORDERED: hydrALAZINE 20mg/ml inj. IV PRN (01:10)
[2019-05-24] MEDS: propofol 1000mg/100ml bottle 100 ML IV SCH ×4 (03:09→20:09)
[2019-05-24] MEDS: FENTANYL-0.9 % NACL/PF 100 ML IV PRN ×2 (03:19→17:45)
[2019-05-24 03:51] LABS: ABG BASE EXCESS 0.9 mmol/L (-2.0-3.0); ABG HCO3 24.2 mmol/L (22.0-26.0); ABG OXYGEN SATURATION 99.5 % (95-98); ABG PCO2 (T) 35.4 mmHg (35.0-45.0); ABG PH (T) 7.457 (7.350-7.450); ABG PO2 (T) 210.7 mmHg (83-108); ALLEN'S TEST Positive; FCOHb 0.8 % (0.5-1.5); FMetHb 0.3 % (0.3-1.12); FO2Hb 98.4 % (94-100); MINUTE VOLUME 10 L/min; PATIENT TEMPERATURE 38.2; PEEP 5 cm H2O; RESPIRATORY RATE 18 b/min; RESPIRATORY RATE (OBSERVED) 19 b/min; TIDAL VOLUME 500 mL; TOTAL HEMOGLOBIN 10.8 G/dl (14.0-17.9)
[2019-05-24] MEDS ORDERED: normal saline 1000ml 1,000 ML IVB ONE (06:13)
[2019-05-24 06:17] LABS: BASOPHILS # (AUTO) 0.1 X10'3 (0-0.2); BASOPHILS % (AUTO) 0.6 % (0-1); EOSINOPHILS # (AUTO) 0.1 X10'3 (0-0.9); EOSINOPHILS % (AUTO) 0.4 % (0-6); HEMATOCRIT 31.3 % (42.0-52.0); HEMOGLOBIN 10.6 g/dl (14.0-17.9); LYMPHOCYTES # (AUTO) 0.9 X10'3 (1.1-4.8); LYMPHOCYTES % (AUTO) 5.5 % (21-51); MEAN CORPUSCULAR HEMOGLOBIN 27.7 PG (27.0-31.0); MEAN CORPUSCULAR HGB CONC 33.7 g/dL (33.0-36.5); MEAN CORPUSCULAR VOLUME 82.2 FL (78-98); MEAN PLATELET VOLUME 9.1 FL (7.4-10.4); MONOCYTES # (AUTO) 0.4 X10'3 (0-0.9); MONOCYTES % (AUTO) 2.1 % (2-12); NEUTROPHILS % (AUTO) 91.4 % (42-75); PLATELET COUNT 461 X10'3 (140-440); RED BLOOD COUNT 3.81 X10'6 (4.70-6.10); RED CELL DISTRIBUTION WIDTH 15.3 % (11.5-14.5); WHITE BLOOD COUNT 16.4 X10'3 (4.5-11.0)
[2019-05-24 06:18] LABS: ALANINE AMINOTRANSFERASE 15 U/L (12-78); ALBUMIN 1.9 G/DL (3.4-5.0); ALBUMIN/GLOBULIN RATIO 0.4 (1.1-1.5); ALKALINE PHOSPHATASE 77 IU/L (46-116); ANION GAP 9 (8-16); ASPARTATE AMINO TRANSFERASE 20 U/L (10-37); BILIRUBIN,TOTAL 0.3 MG/DL (0.1-1.0); BLOOD UREA NITROGEN 21 MG/DL (7-18); CALCIUM 7.9 MG/DL (8.5-10.1); CHLORIDE 101 MMOL/L (99-107); CREATININE 1.05 MG/DL (0.60-1.10); GLUCOSE 202 MG/DL (70-104); MAGNESIUM 2.2 MG/DL (1.5-2.4); PHOSPHORUS 2.5 MG/DL (2.3-4.5); POTASSIUM 4.4 MMOL/L (3.5-5.1); SODIUM 136 MMOL/L (135-145); TOTAL CARBON DIOXIDE 26.3 MMOL/L (24-32); TOTAL PROTEIN 7.3 G/DL (6.4-8.2); eGFR 72 ML/MIN
[2019-05-24] MEDS: normal saline 1000ml 1,000 ML IV SCH ×2 (06:28→13:47)
--- NOTE | 2019-05-24 06:41 | NUR ---
Patient in room CICU 2008. I have received report from Radha and had the opportunity to ask questions and assume patient care.
--- NOTE | 2019-05-24 06:44 | NUR ---
Problems reprioritized. Patient report given, questions answered & plan of care reviewed with GILMAR Mills.
[2019-05-24] MEDS: docusate sod 100mg capsule PO SCH (08:00)
[2019-05-24] MEDS: lactobacillus rhamnosus 10,000 MMU CELLS/CAPSULE PO SCH ×2 (08:37→20:09)
[2019-05-24] MEDS: insulin Lispro (HumaLOG) vial - multi-dose SQ SCH ×3 (08:43→20:45)
--- NOTE | 2019-05-24 11:02 | NUR ---
1100 Dr Duran rounds- Check vanco trough before next dose. Start PUD prophylaxis with protonix 40mg daily, MD notified of +MRSA blood culture (being treated with vanco), no DVT medication prophylaxis at this time (elevated ddimer). Aware of BP, may increase IV fluid if necessary, QT interval 0.42. Wean FI02 as tolerated with weaning parameters in AM in hopes of extubation.
--- NOTE | 2019-05-24 11:54 | NUR ---
1155- Pharmacy cancelled trough ordered for 1230 today/ Spoke with Neeraj. Trough to be drawn before 4th dose which is scheduled for tomorrow afternoon.
--- NOTE | 2019-05-24 18:24 | NUR ---
Problems reprioritized. Patient report given, questions answered & plan of care reviewed with Radha.
[2019-05-24] MEDS: insulin glargine (Lantus) pen - multi-dose SQ SCH (20:45)
[2019-05-25] VITALS (24 sets, daily range): BP systolic 83–135; BP diastolic 49–68
[2019-05-25] MEDS: normal saline 1000ml 1,000 ML IV SCH ×2 (00:37→12:13)
[2019-05-25] MEDS: propofol 1000mg/100ml bottle 100 ML IV SCH ×3 (00:38→11:17)
[2019-05-25] MEDS: insulin Lispro (HumaLOG) vial - multi-dose SQ SCH ×2 (02:27→19:07)
[2019-05-25] MEDS: mineral oil/petrolatum ophthal oint EACHEYE SCH ×3 (02:27→14:00)
[2019-05-25 03:46] LABS: ABG BASE EXCESS 0.3 mmol/L (-2.0-3.0); ABG HCO3 23.8 mmol/L (22.0-26.0); ABG OXYGEN SATURATION 97.8 % (95-98); ABG PCO2 (T) 32.9 mmHg (35.0-45.0); ABG PH (T) 7.475 (7.350-7.450); ABG PO2 (T) 111.4 mmHg (83-108); ALLEN'S TEST Positive; FCOHb 0.3 % (0.5-1.5); FMetHb 0.3 % (0.3-1.12); FO2Hb 97.2 % (94-100); PATIENT TEMPERATURE 36.1; PEEP 5 cm H2O; RESPIRATORY RATE 18 b/min; RESPIRATORY RATE (OBSERVED) 18 b/min; TIDAL VOLUME 500 mL; TOTAL HEMOGLOBIN 9.9 G/dl (14.0-17.9)
[2019-05-25 05:47] LABS: ALANINE AMINOTRANSFERASE 13 U/L (12-78); ALBUMIN 1.6 G/DL (3.4-5.0); ALBUMIN/GLOBULIN RATIO 0.3 (1.1-1.5); ALKALINE PHOSPHATASE 64 IU/L (46-116); ANION GAP 7 (8-16); ASPARTATE AMINO TRANSFERASE 10 U/L (10-37); BILIRUBIN,TOTAL 0.2 MG/DL (0.1-1.0); BLOOD UREA NITROGEN 19 MG/DL (7-18); BUN/CREATININE RATIO 23.5 (5.4-32.0); CALCIUM 7.9 MG/DL (8.5-10.1); CHLORIDE 108 MMOL/L (99-107); CREATININE 0.81 MG/DL (0.60-1.10); GLUCOSE 136 MG/DL (70-104); MAGNESIUM 2.8 MG/DL (1.5-2.4); PHOSPHORUS 2.9 MG/DL (2.3-4.5); POTASSIUM 3.7 MMOL/L (3.5-5.1); SODIUM 141 MMOL/L (135-145); TOTAL CARBON DIOXIDE 25.7 MMOL/L (24-32); TOTAL PROTEIN 6.3 G/DL (6.4-8.2); TRIGLYCERIDES 115 MG/DL (20-135); eGFR > 90 ML/MIN
[2019-05-25 06:00] LABS: BASOPHILS % (AUTO) 0.4 % (0-1); EOSINOPHILS % (AUTO) 0.2 % (0-6); LYMPHOCYTES # (AUTO) 2.2 X10'3 (1.1-4.8); LYMPHOCYTES % (AUTO) 15.9 % (21-51); MEAN CORPUSCULAR HEMOGLOBIN 27.4 PG (27.0-31.0); MEAN CORPUSCULAR HGB CONC 33.2 g/dL (33.0-36.5); MEAN CORPUSCULAR VOLUME 82.6 FL (78-98); MEAN PLATELET VOLUME 8.9 FL (7.4-10.4); MONOCYTES # (AUTO) 0.7 X10'3 (0-0.9); MONOCYTES % (AUTO) 5.5 % (2-12); NEUTROPHILS # (AUTO) 10.5 X10'3 (1.8-7.7); PLATELET COUNT 450 X10'3 (140-440); RED BLOOD COUNT 3.27 X10'6 (4.70-6.10); RED CELL DISTRIBUTION WIDTH 15.8 % (11.5-14.5); WHITE BLOOD COUNT 13.5 X10'3 (4.5-11.0)
--- NOTE | 2019-05-25 06:31 | NUR ---
Patient in room CICU 2008. I have received report from Radha and had the opportunity to ask questions and assume patient care.
[2019-05-25] MEDS: docusate sodium 100mg/10ml UD cup PO SCH ×2 (07:33→19:54)
[2019-05-25] MEDS: lactobacillus rhamnosus 10,000 MMU CELLS/CAPSULE PO SCH ×2 (07:33→19:54)
[2019-05-25] MEDS: pantoprazole 40 MG vial IV SCH (07:33)
[2019-05-25] MEDS ORDERED: VANCOMYCIN LEVEL IV ONE (11:30)
--- NOTE | 2019-05-25 12:43 | NUR ---
1245- Vanco trough level of 29.2 reported to pharmacy. instructed to stop current 12:00 dose of vanco and pharmacy will adjust med dose and retime.
--- NOTE | 2019-05-25 13:51 | NUR ---
1345- accu check 74. anticipating extubation today but will be unable to eat or drink until safe swallow established. Patient received 50 of lantus last noc. Administered 1 juice via OG.
[2019-05-25] MEDS: HYDROcodone/acetaminophen 10/325mg tab PO PRN ×2 (14:08→22:11)
--- NOTE | 2019-05-25 14:45 | NUR ---
PT PASSED WEANING PARAMETERS THIS AM. DR PRIEST ORDERED TO HAVE PT EXTUBATED THIS AFTERNOON. AT 1420 PT SELF EXTUBATED. PT WAS PUT ON 3L NASAL CANNULA, SPO2 95%. NO SOB OR DISTRESS NOTED. WILL CONTINUE MONITOR PT. Addendum: 05/25/19 at 1450 by Supriya Johnson RT Amended: Links added.
[2019-05-25 15:47] LABS: CLARITY,URINE CLOUDY (Clear); COLOR,URINE YELLOW (Yellow); GLUCOSE, URINE NEGATIVE (Neg); KETONES,URINE NEGATIVE (Neg); LEUKOCYTE ESTERASE ,URINE MODERATE (Neg); NITRITES, URINE NEGATIVE (Neg); OCCULT BLOOD,URINE NEGATIVE (Neg); PH,URINE 5.5 (4.8-8.0); PROTEIN,URINE 30 mg/dl (Neg); UROBILINOGEN,URINE 0.2 E.U/dL (0.2-1.0)
[2019-05-25 15:54] LABS: BACTERIA,URINE FEW /HPF (Neg); MUCUS STRANDS NONE SEEN /LPF (Neg); RBC,URINE NONE SEEN /HPF (0-2); SQUAMOUS EPITHELIAL CELL,UR FEW /LPF (FEW); WBC,URINE 50-100 /HPF (0-4)
[2019-05-25 15:55] LABS: UA COLLECTION TYPE FOLEY CATH
--- NOTE | 2019-05-25 16:37 | NUR ---
1345- Dr Duran rounds- extubate, ua with culture, SL iv. Sedation stopped. 1420- while preparing for extubation, patient self extubated using his knees. Strong cough, no stridor, some rhonchi clears with cough. Confused re: what has occured over the last couple days, continue to reorient. Called patient's girlfriend updated on patient's status.
--- NOTE | 2019-05-25 18:31 | NUR ---
Problems reprioritized. Patient report given, questions answered & plan of care reviewed with Bea..
--- NOTE | 2019-05-25 18:40 | NUR ---
Patient in room CICU 2007. I have received report from Gene SCHAFER and had the opportunity to ask questions and assume patient care.
--- NOTE | 2019-05-25 20:00 | NUR ---
Patient awake, alert, oriented and pleasant. Vitals stable. He is able to make his needs known. When performing physical assessment it was observed that the meaghan drain which was in place to the patient's right scrotum was no longer in place but just sitting in the bed. One suture had come out and was stuck in the drain itself and the rest of the sutures remain in place. No trauma or bleeding noted at the site where the drain had come out. Will continue to monitor.
[2019-05-25] MEDS: insulin glargine (Lantus) pen - multi-dose SQ SCH (21:40)
[2019-05-26] VITALS (15 sets, daily range): BP systolic 123–170; BP diastolic 67–85
[2019-05-26] MEDS: vancomycin/NS 1 GM ADD-VANTAGE 250 ML X 1 DOSE IV SCH ×3 (03:53→20:12)
[2019-05-26] MEDS: normal saline 1000ml 1,000 ML IV SCH (03:58)
--- NOTE | 2019-05-26 06:46 | NUR ---
Problems reprioritized. Patient report given, questions answered & plan of care reviewed with Pat RN.
[2019-05-26] MEDS: docusate sodium 100mg/10ml UD cup PO SCH ×2 (09:02→20:00)
[2019-05-26] MEDS: lactobacillus rhamnosus 10,000 MMU CELLS/CAPSULE PO SCH ×2 (09:03→20:13)
[2019-05-26] MEDS: pantoprazole 40 MG vial IV SCH (09:03)
[2019-05-26] MEDS: insulin Lispro (HumaLOG) vial - multi-dose SQ SCH ×2 (09:07→20:09)
--- NOTE | 2019-05-26 12:00 | NUR ---
PATIENT'S BS 55 VIA ACCU CHECK. 15 GRAMS OF GLUCOSE GIVEN PO PER PROTOCOL.RECHECKED BS S/P 15 MIN AND BS 75. LUNCH SERVED; PATIENT ATE 100% OF MEAL.GLUCOSE LEVEL REDUCED FROM LEVEL 6 TO LEVEL 4. Addendum: 05/26/19 at 1611 by Alma Kirkpatrick RN Amended: Links added.
[2019-05-26] MEDS: HYDROcodone/acetaminophen 10/325mg tab PO PRN ×2 (12:06→20:13)
--- NOTE | 2019-05-26 12:12 | NUR ---
reassessment: Pt briefly intubated yesterday following respiratory distress followed by self-extubation last PM per RN. Pt returned to carb controlled diet PO 75-100% previously w/ double proteins. LBM 05/23. No nutrition concerns at this time. Will continue to monitor. Recommend: 1. continue carb controlled diet 2. double protein per pt request 3. wt per rx Addendum: 05/26/19 at [address] Amended: Links added.
--- NOTE | 2019-05-26 16:11 | NUR ---
REPORT PHONED TO GARAGE MANAGER. APPRISED NURSE REGARDING LOW BLOOD SUGAR, AND REDUCTION FROM LEVEL 6 TO LEVEL 4.TRANSFERRED TO ROOM 355B WITH ALL BELONGINGS.
--- NOTE | 2019-05-26 17:07 | NUR ---
Patient situated in room
--- NOTE | 2019-05-26 17:16 | NUR ---
Patient oriented to room, call light within reach, patient able to use TV on his own. Water provided.
--- NOTE | 2019-05-26 18:06 | NUR ---
Problems reprioritized. Patient report given, questions answered & plan of care reviewed with Osvaldo SCHAFER.
[2019-05-27] VITALS: BP 139/69
[2019-05-27] MEDS: HYDROcodone/acetaminophen 10/325mg tab PO PRN ×3 (00:51→22:49)
[2019-05-27] MEDS: insulin glargine (Lantus) pen - multi-dose SQ SCH ×2 (01:11→22:38)
[2019-05-27] MEDS ORDERED: VANCOMYCIN LEVEL IV ONE (03:30)
[2019-05-27] MEDS: vancomycin/NS 1 GM ADD-VANTAGE 250 ML X 1 DOSE IV SCH (03:53)
[2019-05-27 07:00] VITALS: BP 135/71
--- NOTE | 2019-05-27 07:00 | NUR ---
Problems reprioritized. Patient report given, questions answered & plan of care reviewed with MILDRED. Addendum: 05/27/19 at 0700 by Stephon Farias RN Amended: Links added.
--- NOTE | 2019-05-27 07:13 | NUR ---
Patient in room [facility] 355. I have received report from Osvaldo SCHAFER and had the opportunity to ask questions and assume patient care.
[2019-05-27] MEDS: lactobacillus rhamnosus 10,000 MMU CELLS/CAPSULE PO SCH ×2 (07:29→20:32)
[2019-05-27] MEDS: docusate sodium 100mg/10ml UD cup PO SCH ×2 (07:29→20:32)
[2019-05-27] MEDS: insulin Lispro (HumaLOG) vial - multi-dose SQ SCH ×4 (08:38→22:37)
--- NOTE | 2019-05-27 09:13 | NUR ---
Shayna with Dr Perry office called to see if patient has filled out paperwork for appt with their office. Per patient he has not filled out any paperwork. Shayna will refax paper work for patient to fill out then we need to re-fax back to Dr Perry's office. Received orders from Dr Perry to keep rubi in place and ok for patient to shower.
[2019-05-27 12:00] VITALS: BP 144/76
[2019-05-27] MEDS: VANCOmycin 1250MG/NS 250ml Bag 250 ML IV SCH ×2 (12:20→20:33)
[2019-05-27] MEDS ORDERED: ipratropium/albuterol 3ml nebule NEB PRN (16:05)
--- NOTE | 2019-05-27 18:42 | NUR ---
Problems reprioritized. Patient report given, questions answered & plan of care reviewed with Osvaldo SCHAFER.
[2019-05-27] MEDS: ipratropium/albuterol 3ml nebule NEB SCH (20:01)
[2019-05-27] MEDS ORDERED: morphine 4 MG/ML inj SYRINge IV ONE (20:05)
[2019-05-27] MEDS ORDERED: morphine 4 MG/ML inj SYRINge ONE (20:09)
[2019-05-28] VITALS (7 sets, daily range): BP systolic 99–139; BP diastolic 49–63
[2019-05-28] MEDS: ipratropium/albuterol 3ml nebule NEB SCH ×4 (02:33→20:09)
[2019-05-28] MEDS: VANCOmycin 1250MG/NS 250ml Bag 250 ML IV SCH ×3 (04:11→20:36)
[2019-05-28] MEDS: HYDROcodone/acetaminophen 10/325mg tab PO PRN ×4 (04:32→22:48)
--- NOTE | 2019-05-28 06:37 | NUR ---
Problems reprioritized. Patient report given, questions answered & plan of care reviewed with Abelardo.
--- NOTE | 2019-05-28 06:53 | NUR ---
Patient in room [facility] 355. I have received report from GILMAR PHILLIPS and had the opportunity to ask questions and assume patient care.
--- NOTE | 2019-05-28 06:53 | NUR ---
Problems reprioritized. Patient report given, questions answered & plan of care reviewed with JOEL. Addendum: 05/28/19 at 0654 by Stephon Farias RN Amended: Links added.
[2019-05-28] MEDS: docusate sodium 100mg/10ml UD cup PO SCH ×3 (07:08→20:36)
[2019-05-28] MEDS: lactobacillus rhamnosus 10,000 MMU CELLS/CAPSULE PO SCH ×2 (07:08→20:36)
[2019-05-28] MEDS ORDERED: etomidate 2mg/ml inj. ONE (08:00)
[2019-05-28] MEDS ORDERED: rocuronium 10mg/ml inj IV ONE (08:00)
[2019-05-28] MEDS ORDERED: furosemide 40mg/4ml inj IV ONE (08:15)
[2019-05-28 08:36] LABS: ABG BASE EXCESS 2.6 mmol/L (-2.0-3.0); ABG HCO3 27.1 mmol/L (22.0-26.0); ABG OXYGEN SATURATION 92.1 % (95-98); ABG PCO2 (T) 41.3 mmHg (35.0-45.0); ABG PH (T) 7.435 (7.350-7.450); ABG PO2 (T) 61.5 mmHg (83-108); ALLEN'S TEST Positive; FCOHb 0.6 % (0.5-1.5); FLOW 15 L/min; FO2Hb 91.5 % (94-100); TOTAL HEMOGLOBIN 11.3 G/dl (14.0-17.9)
[2019-05-28] MEDS: insulin Lispro (HumaLOG) vial - multi-dose SQ SCH ×3 (08:56→18:52)
--- NOTE | 2019-05-28 09:00 | NUR ---
Patient on 10L high flow nasal cannula and saturating at 96% during rounding. However, after assessing patient, patient was assisted in being pulled up higher in bed. HOB was lowered to 30degree and pulled up. Patient O2 then went down to 88%. Patient HOB raised to 90 degree and O2 was increased to 15L high flow nasal cannula and patient 93%. Encouraged patient to do deep breathing and coughing exercises and use IS. Patient agreed. Patient then stated he would like to "rest for a bit." Called in to patient room by PCT that patient O2 had "dropped down to 76% after he reached down foot of the bed to get something." Went to assess patient and patient c/o SOB at rest and severly SOB with little exertion. Patient O2 was 88% and was able to get to 93% on 15L high flow after doing deep breathing and coughing exercise. Resp. therapy paged for treatment and Dr. Walker notified of events. Dr. Walker ordered to have chest xray and ABG stat, Lasix 40mg IV now and transfer to PCU.
--- NOTE | 2019-05-28 10:00 | NUR ---
Received report from GILMAR Zhou on [facility], patient arrived on unit, VSS, on 15L HFNC, patient reports some pain in incision area, photograph of wound taken, contact precautions initiated. Noted that IVs , attempted to insert new IV but was unsuccessful, spoke to Dr. Walker who okayed an extended PIV, PICC nurse paged
--- NOTE | 2019-05-28 10:28 | NUR ---
Patient transferred to room 3019 with all belongings. Receiving RN at bedside to receive patient.
[2019-05-28] MEDS ORDERED: VANCOMYCIN LEVEL IV ONE (11:30)
--- NOTE | 2019-05-28 12:30 | NUR ---
Problems reprioritized. Patient report given, questions answered & plan of care reviewed with GILMAR Vivar. Patient currently resting in bed, bed locked and low, call light in reach, no acute distress.
--- NOTE | 2019-05-28 12:31 | NUR ---
Patient in room PCU 3019. I have received report from Mary Jo SCHAFER and had the opportunity to ask questions and assume patient care.
[2019-05-28 15:10] LABS: ALANINE AMINOTRANSFERASE 12 U/L (12-78); ALBUMIN 1.7 G/DL (3.4-5.0); ALBUMIN/GLOBULIN RATIO 0.3 (1.1-1.5); ALKALINE PHOSPHATASE 79 IU/L (46-116); ANION GAP 8 (8-16); ASPARTATE AMINO TRANSFERASE 15 U/L (10-37); BILIRUBIN,TOTAL 0.5 MG/DL (0.1-1.0); BLOOD UREA NITROGEN 14 MG/DL (7-18); BUN/CREATININE RATIO 14.7 (5.4-32.0); CHLORIDE 100 MMOL/L (99-107); CREATININE 0.95 MG/DL (0.60-1.10); GLUCOSE 220 MG/DL (70-104); MAGNESIUM 1.8 MG/DL (1.5-2.4); PHOSPHORUS 2.4 MG/DL (2.3-4.5); POTASSIUM 3.9 MMOL/L (3.5-5.1); SODIUM 137 MMOL/L (135-145); TOTAL CARBON DIOXIDE 29.4 MMOL/L (24-32); TOTAL PROTEIN 6.7 G/DL (6.4-8.2); eGFR 80 ML/MIN
--- NOTE | 2019-05-28 18:25 | NUR ---
Problems reprioritized. Patient report given, questions answered & plan of care reviewed with Andry SCHAFER.
--- NOTE | 2019-05-28 18:44 | NUR ---
Patient in room PCU 3019. I have received report from GILMAR Vivar and had the opportunity to ask questions and assume patient care. Patient asleep for bedside report and stable at this time. Patient on 50 L NC highflow. Will continue to monitor closely.
--- NOTE | 2019-05-28 21:26 | NUR ---
Patient oxygen saturation sustained 80-82% on 50L. Turned up to 60L and sating at 92%. Will continue to monitor closely.
[2019-05-28] MEDS: insulin glargine (Lantus) pen - multi-dose SQ SCH (21:49)
--- NOTE | 2019-05-28 23:02 | NUR ---
Pt oxygen saturation at 85%, turned up to 65L, will continue to monitor
--- NOTE | 2019-05-28 23:33 | NUR ---
Pt oxygen saturation at 85% on 65L 60% FiO2, paged respiratory to come further assess the pt. will continue to monitor.
[2019-05-29] VITALS (8 sets, daily range): BP systolic 100–139; BP diastolic 59–76
--- NOTE | 2019-05-29 01:14 | NUR ---
excess condensation in tubing of hi-flow NC, paged respiratory to come replace the tubing. will continue to monitor pt closely
[2019-05-29] MEDS: ipratropium/albuterol 3ml nebule NEB SCH ×4 (02:27→20:52)
[2019-05-29] MEDS: VANCOmycin 1250MG/NS 250ml Bag 250 ML IV SCH ×2 (04:00→05:34)
--- NOTE | 2019-05-29 04:23 | NUR ---
Samanhta notified of elevated vancomycin trough 17.8. Orders to non-admin 0400 dose of vanco noted and non-admined in eMAR. Pharmacy notified and will dose for next timed administration. Addendum: 05/29/19 at 0510 by Fred Ireland RN Pharmacy called to floor and recommended to administer 0400 dose of vancomycin against provider order. Per nursing judgment, I will not be going against providers orders and practicing medicine, which is outside the scope of my practice.
--- NOTE | 2019-05-29 05:30 | NUR ---
Clarified telephone order to give 0400 dose of vancomycin and provider stated, "do whatever pharmacy says." Will be hanging 0400 dose of vancomycin. Notified pharmacy. Will undo nonadmin.
[2019-05-29 05:58] LABS: BASOPHILS # (AUTO) 0.1 X10'3 (0-0.2); BASOPHILS % (AUTO) 0.4 % (0-1); EOSINOPHILS # (AUTO) 0.7 X10'3 (0-0.9); EOSINOPHILS % (AUTO) 3.9 % (0-6); HEMATOCRIT 32.7 % (42.0-52.0); HEMOGLOBIN 10.7 g/dl (14.0-17.9); LYMPHOCYTES # (AUTO) 2.4 X10'3 (1.1-4.8); MEAN CORPUSCULAR HGB CONC 32.7 g/dL (33.0-36.5); MEAN CORPUSCULAR VOLUME 82.5 FL (78-98); MEAN PLATELET VOLUME 8.4 FL (7.4-10.4); MONOCYTES # (AUTO) 1.2 X10'3 (0-0.9); MONOCYTES % (AUTO) 7.1 % (2-12); NEUTROPHILS # (AUTO) 12.9 X10'3 (1.8-7.7); NEUTROPHILS % (AUTO) 74.6 % (42-75); PLATELET COUNT 443 X10'3 (140-440); RED BLOOD COUNT 3.96 X10'6 (4.70-6.10); RED CELL DISTRIBUTION WIDTH 15.7 % (11.5-14.5); WHITE BLOOD COUNT 17.3 X10'3 (4.5-11.0)
--- NOTE | 2019-05-29 06:00 | NUR ---
Patient in room PCU 3019. I have received report from Andry SCHAFER and had the opportunity to ask questions and assume patient care.
[2019-05-29 06:11] LABS: ALBUMIN 1.7 G/DL (3.4-5.0); ANION GAP 4 (8-16); BLOOD UREA NITROGEN 14 MG/DL (7-18); BUN/CREATININE RATIO 15.6 (5.4-32.0); CALCIUM 8.5 MG/DL (8.5-10.1); CHLORIDE 102 MMOL/L (99-107); GLUCOSE 91 MG/DL (70-104); MAGNESIUM 1.9 MG/DL (1.5-2.4); POTASSIUM 4.3 MMOL/L (3.5-5.1); SODIUM 137 MMOL/L (135-145); TOTAL CARBON DIOXIDE 31.2 MMOL/L (24-32); eGFR 86 ML/MIN
--- NOTE | 2019-05-29 06:15 | NUR ---
Problems reprioritized. Patient report given, questions answered & plan of care reviewed with Farhana RN.
--- NOTE | 2019-05-29 06:21 | NUR ---
Problems reprioritized. Patient report given, questions answered & plan of care reviewed with GILMAR Delcid.
[2019-05-29] MEDS: HYDROcodone/acetaminophen 10/325mg tab PO PRN ×4 (06:23→20:17)
--- NOTE | 2019-05-29 06:38 | NUR ---
Student documentation: I have reviewed and agree with all interventions, assessments performed and documented by GILMAR Baum.
[2019-05-29] MEDS: docusate sodium 100mg/10ml UD cup PO SCH ×2 (08:00→20:16)
[2019-05-29] MEDS: lactobacillus rhamnosus 10,000 MMU CELLS/CAPSULE PO SCH ×2 (08:00→20:17)
[2019-05-29] MEDS ORDERED: furosemide 40mg/4ml inj IV ONE (08:45)
[2019-05-29 09:16] LABS: ABG BASE EXCESS 0.5 mmol/L (-2.0-3.0); ABG HCO3 23.8 mmol/L (22.0-26.0); ABG PCO2 (T) 33.8 mmHg (35.0-45.0); ABG PH (T) 7.466 (7.350-7.450); ALLEN'S TEST Positive; FCOHb 0.8 % (0.5-1.5); FLOW 50 L/min; FMetHb 0.3 % (0.3-1.12); TOTAL HEMOGLOBIN 11.4 G/dl (14.0-17.9)
--- NOTE | 2019-05-29 09:19 | NUR ---
Reassessment: Pt with decrease in PO intake for breakfast and lunch yesterday however overall continues with 75-100% PO intake on CHO controlled diet receiving double protein TID likely meeting nutrient needs. Pt started on BiPAP for SOB per MD notes. LBM 05/27, pt receiving routine Colace and with PRN bowel care. Will continue to follow. Recommend: 1. continue carb controlled diet 2. double protein per pt request 3. wt per rx Addendum: 05/29/19 at [address] Amended: Links added.
[2019-05-29] MEDS ORDERED: linezolid 600mg/300ml PREMIX 300 ML IV ONE (09:25)
[2019-05-29] MEDS ORDERED: cefepime 1GM in D5W 50mL 50 ML IV ONE (09:25)
[2019-05-29] MEDS: insulin Lispro (HumaLOG) vial - multi-dose SQ SCH (14:05)
[2019-05-29] MEDS: cefepime 1GM in D5W 50mL 50 ML IV SCH (17:04)
--- NOTE | 2019-05-29 18:00 | NUR ---
Problems reprioritized. Patient report given, questions answered & plan of care reviewed with Kiel SCHAFER.
--- NOTE | 2019-05-29 18:25 | NUR ---
Patient in room PCU 3019. I have received report from Keshia SCHAFER, and had the opportunity to ask questions and assume patient care.
[2019-05-29] MEDS: methylPREDNISolone sod succ 125mg/2ml vial IV SCH (20:17)
[2019-05-29] MEDS: traMADol 50MG tablet PO PRN (20:18)
[2019-05-29] MEDS: linezolid 600mg/300ml PREMIX 300 ML IV SCH (20:19)
[2019-05-29] MEDS: insulin glargine (Lantus) pen - multi-dose SQ SCH (20:48)
[2019-05-30] MEDS: cefepime 1GM in D5W 50mL 50 ML IV SCH ×3 (00:34→16:53)
[2019-05-30] MEDS: methylPREDNISolone sod succ 125mg/2ml vial IV SCH ×4 (02:11→20:21)
[2019-05-30] MEDS: traMADol 50MG tablet PO PRN ×2 (02:48→20:14)
[2019-05-30] MEDS: HYDROcodone/acetaminophen 10/325mg tab PO PRN ×3 (02:49→20:13)
[2019-05-30 03:00] VITALS: BP 165/82
[2019-05-30] MEDS: ipratropium/albuterol 3ml nebule NEB SCH ×4 (03:01→20:44)
[2019-05-30 05:40] LABS: BASOPHILS % (AUTO) 0.3 % (0-1); EOSINOPHILS % (AUTO) 0.1 % (0-6); HEMATOCRIT 34.9 % (42.0-52.0); HEMOGLOBIN 11.6 g/dl (14.0-17.9); LYMPHOCYTES # (AUTO) 0.9 X10'3 (1.1-4.8); LYMPHOCYTES % (AUTO) 8.4 % (21-51); MEAN CORPUSCULAR HEMOGLOBIN 27.3 PG (27.0-31.0); MEAN CORPUSCULAR HGB CONC 33.3 g/dL (33.0-36.5); MEAN CORPUSCULAR VOLUME 82.1 FL (78-98); MEAN PLATELET VOLUME 8.3 FL (7.4-10.4); MONOCYTES # (AUTO) 0.2 X10'3 (0-0.9); MONOCYTES % (AUTO) 2.1 % (2-12); NEUTROPHILS # (AUTO) 9.6 X10'3 (1.8-7.7); NEUTROPHILS % (AUTO) 89.1 % (42-75); PLATELET COUNT 400 X10'3 (140-440); RED BLOOD COUNT 4.26 X10'6 (4.70-6.10); RED CELL DISTRIBUTION WIDTH 15.8 % (11.5-14.5); WHITE BLOOD COUNT 10.8 X10'3 (4.5-11.0)
[2019-05-30 05:49] LABS: ALBUMIN 1.8 G/DL (3.4-5.0); ANION GAP 6 (8-16); BLOOD UREA NITROGEN 22 MG/DL (7-18); BUN/CREATININE RATIO 22.2 (5.4-32.0); CALCIUM 8.3 MG/DL (8.5-10.1); CHLORIDE 95 MMOL/L (99-107); CREATININE 0.99 MG/DL (0.60-1.10); GLUCOSE 356 MG/DL (70-104); PHOSPHORUS 3.6 MG/DL (2.3-4.5); POTASSIUM 5.5 MMOL/L (3.5-5.1); SODIUM 129 MMOL/L (135-145); TOTAL CARBON DIOXIDE 28.2 MMOL/L (24-32); eGFR 77 ML/MIN
[2019-05-30 06:00] VITALS: BP 120/74
--- NOTE | 2019-05-30 06:00 | NUR ---
Patient in room PCU 3019. I have received report from Kiel SCHAFER and had the opportunity to ask questions and assume patient care.
--- NOTE | 2019-05-30 06:13 | NUR ---
Problems reprioritized. Patient report given, questions answered & plan of care reviewed with Keshia SCHAFER.
--- NOTE | 2019-05-30 06:30 | NUR ---
Patient O2 sat 95%, no respiratory distress noted, discussed with RT Gayatri who agreed to change oxygen FiO2 to 60 and leave oxygen flow to 45%. Change made.
--- NOTE | 2019-05-30 07:03 | NUR ---
Patient O2 sat 82%, respiratory therapy Gayatri present and will see patient now.
[2019-05-30] MEDS ORDERED: DOBUTamine/D5W 500mg/250ml premix IV ONE (08:00)
[2019-05-30] MEDS: lactobacillus rhamnosus 10,000 MMU CELLS/CAPSULE PO SCH ×2 (08:26→20:21)
[2019-05-30] MEDS ORDERED: sodium polystyrene sulfonate 15gm/60ml oral suspension PO ONE (09:50)
--- NOTE | 2019-05-30 09:50 | NUR ---
Call to Dr Turner re: hyperkalemia, hyponatremia and oxygen saturation parameters. 30g Kayexalate once ordered, no change to oxygen saturation parameters.
[2019-05-30] MEDS: insulin Lispro (HumaLOG) vial - multi-dose SQ SCH ×3 (10:20→20:21)
[2019-05-30] MEDS: linezolid 600mg/300ml PREMIX 300 ML IV SCH (10:21)
[2019-05-30 11:00] VITALS: BP 126/65
[2019-05-30 14:18] LABS: HIV ANTIBODY 1&2 RAPID NON-REACTIVE (Neg)
--- NOTE | 2019-05-30 14:43 | NUR ---
Call to Tasha Snowden to report Procalcitonin results of 9.89 per her request. Also reported that HIV is non-reactive.
[2019-05-30 15:00] VITALS: BP 118/62
--- NOTE | 2019-05-30 16:30 | NUR ---
Patient oxygen saturation 98% on hi flow nasal canula with 45% oxygen flow and FiO2 of 80, decreased FiO2 to 70, saturation down to 92%, then notified by telephone instrument supervisor pt sat went down to 84%, recovered to 90% after 30 sec. Patient tends to breathe through mouth and de-sats when sleeping.
--- NOTE | 2019-05-30 17:32 | NUR ---
Pt receiving Zyvox seen at bedside provided with written and verbal low tyramine nutrition therapy education with RD contact information. Will continue to follow. Addendum: 05/30/19 at [address] Amended: Links added.
[2019-05-30 18:00] VITALS: BP 120/62
--- NOTE | 2019-05-30 18:00 | NUR ---
Problems reprioritized. Patient report given, questions answered & plan of care reviewed with Kiel SCHAFER.
[2019-05-30] MEDS: linezolid 600mg tablet PO SCH (20:10)
[2019-05-30] MEDS: docusate sod 100mg capsule PO SCH (20:13)
[2019-05-30 22:00] VITALS: BP 134/86
[2019-05-30] MEDS: insulin glargine (Lantus) pen - multi-dose SQ SCH (22:14)
[2019-05-31] MEDS: methylPREDNISolone sod succ 125mg/2ml vial IV SCH ×3 (01:22→20:14)
[2019-05-31] MEDS: cefepime 1GM in D5W 50mL 50 ML IV SCH ×4 (01:22→23:29)
[2019-05-31 02:00] VITALS: BP 143/66
[2019-05-31] MEDS: ipratropium/albuterol 3ml nebule NEB SCH ×4 (03:00→21:25)
[2019-05-31 06:00] VITALS: BP 145/62
--- NOTE | 2019-05-31 06:00 | NUR ---
Patient in room PCU 3019. I have received report from Kiel SCHAFER and had the opportunity to ask questions and assume patient care.
[2019-05-31 06:04] LABS: BASOPHILS % (AUTO) 0.1 % (0-1); EOSINOPHILS % (AUTO) 0 % (0-6); HEMATOCRIT 33.4 % (42.0-52.0); LYMPHOCYTES # (AUTO) 1.2 X10'3 (1.1-4.8); MEAN CORPUSCULAR HEMOGLOBIN 26.8 PG (27.0-31.0); MEAN CORPUSCULAR HGB CONC 33.1 g/dL (33.0-36.5); MEAN CORPUSCULAR VOLUME 81.2 FL (78-98); MEAN PLATELET VOLUME 8.4 FL (7.4-10.4); MONOCYTES # (AUTO) 0.8 X10'3 (0-0.9); MONOCYTES % (AUTO) 3.9 % (2-12); NEUTROPHILS # (AUTO) 17.6 X10'3 (1.8-7.7); PLATELET COUNT 451 X10'3 (140-440); RED BLOOD COUNT 4.11 X10'6 (4.70-6.10); RED CELL DISTRIBUTION WIDTH 15.8 % (11.5-14.5); WHITE BLOOD COUNT 19.5 X10'3 (4.5-11.0)
[2019-05-31 06:21] LABS: ALBUMIN 1.8 G/DL (3.4-5.0); ANION GAP 5 (8-16); BLOOD UREA NITROGEN 26 MG/DL (7-18); BUN/CREATININE RATIO 29.9 (5.4-32.0); CHLORIDE 99 MMOL/L (99-107); CREATININE 0.87 MG/DL (0.60-1.10); GLUCOSE 275 MG/DL (70-104); MAGNESIUM 2.3 MG/DL (1.5-2.4); PHOSPHORUS 2.7 MG/DL (2.3-4.5); POTASSIUM 4.2 MMOL/L (3.5-5.1); SODIUM 137 MMOL/L (135-145); TOTAL CARBON DIOXIDE 33.2 MMOL/L (24-32); eGFR 89 ML/MIN
--- NOTE | 2019-05-31 06:38 | NUR ---
Problems reprioritized. Patient report given, questions answered & plan of care reviewed with Keshia SCHAFER
[2019-05-31] MEDS: linezolid 600mg tablet PO SCH ×2 (09:27→20:14)
[2019-05-31] MEDS: docusate sod 100mg capsule PO SCH ×2 (09:27→20:14)
[2019-05-31] MEDS: lactobacillus rhamnosus 10,000 MMU CELLS/CAPSULE PO SCH ×2 (09:27→20:13)
[2019-05-31 11:00] VITALS: BP 147/69
[2019-05-31] MEDS ORDERED: furosemide 40mg/4ml inj IV ONE ×3 (11:20→15:00)
[2019-05-31] MEDS ORDERED: potassium Cl 20 mEq SR tablet PO PRN ×2 (12:45)
[2019-05-31] MEDS ORDERED: potassium CL 10mEq/100ml bag 100 ML IV PRN (12:45)
[2019-05-31] MEDS: insulin Lispro (HumaLOG) vial - multi-dose SQ SCH ×2 (13:33→18:38)
[2019-05-31 15:33] VITALS: BP 145/67
--- NOTE | 2019-05-31 16:34 | NUR ---
Received TC from RN regarding patient's PO intake. Per RN pt has a difficult time eating r/t SOB. D/w RN ONS recommendations, PA approved Ensure High Protein TID which RN ordered. Pt seen at bedside requests soft to chew food d/t missing teeth and agrees to yogurt QD at breakfast, pudding BIDLD, and non-fat milk TID. Pt also with food preferences for dinner tonight. All preferences d/w dietary. Also informed dietary to review menu selection with pt for mealtimes. Pt provided with alternative CHO controlled write in menu to provide additional food options. Pt already has RD contact information. Will continue to follow. Recommend: 1. continue carb controlled diet 2. Soft to chew per pt request 3. double protein per pt request; blueberry/strawberry yogurt QD at breakfast; chocolate/vanilla pudding BIDLD; non-fat milk TID 4. wt per rx Addendum: 05/31/19 at [address] Amended: Links added.
--- NOTE | 2019-05-31 17:00 | NUR ---
Call to Lynn Zambrano PA-C re: 4 beat run of V-tach. Patient denies chest pain but O2 sat dropped to 84%.
--- NOTE | 2019-05-31 17:32 | NUR ---
Problems reprioritized. Patient report given, questions answered & plan of care reviewed with Emma SCHAFER.
--- NOTE | 2019-05-31 17:39 | NUR ---
Patient in room PCU 3019. I have received report from GILMAR Delcid and had the opportunity to ask questions and assume patient care.
[2019-05-31] MEDS: lactose-reduced food (Ensure High Protein) 237ml bottle PO SCH (18:02)
[2019-05-31 18:21] LABS: ANION GAP 3 (8-16); BLOOD UREA NITROGEN 27 MG/DL (7-18); BUN/CREATININE RATIO 23.9 (5.4-32.0); CALCIUM 8.2 MG/DL (8.5-10.1); CHLORIDE 96 MMOL/L (99-107); CREATININE 1.13 MG/DL (0.60-1.10); GLUCOSE 194 MG/DL (70-104); POTASSIUM 3.5 MMOL/L (3.5-5.1); SODIUM 134 MMOL/L (135-145); TOTAL CARBON DIOXIDE 34.6 MMOL/L (24-32); eGFR 66 ML/MIN
[2019-05-31 19:00] VITALS: BP 110/69
[2019-05-31] MEDS: HYDROcodone/acetaminophen 10/325mg tab PO PRN (20:17)
[2019-05-31 20:50] LABS: MAGNESIUM 2.2 MG/DL (1.5-2.4)
[2019-05-31] MEDS: insulin glargine (Lantus) pen - multi-dose SQ SCH (21:42)
[2019-05-31 23:00] VITALS: BP_SYST 106; BP_SYST 110; BP_DIAS 68; BP_DIAS 69
[2019-06-01] VITALS (8 sets, daily range): BP systolic 106–144; BP diastolic 63–83
[2019-06-01] MEDS: ipratropium/albuterol 3ml nebule NEB SCH ×4 (02:56→20:09)
[2019-06-01] MEDS: HYDROcodone/acetaminophen 10/325mg tab PO PRN ×4 (04:47→21:52)
[2019-06-01 06:16] LABS: BASOPHILS % (AUTO) 0.2 % (0-1); EOSINOPHILS % (AUTO) 0 % (0-6); HEMATOCRIT 36.7 % (42.0-52.0); LYMPHOCYTES # (AUTO) 1.2 X10'3 (1.1-4.8); LYMPHOCYTES % (AUTO) 6.7 % (21-51); MEAN CORPUSCULAR HEMOGLOBIN 26.4 PG (27.0-31.0); MEAN CORPUSCULAR HGB CONC 32.6 g/dL (33.0-36.5); MEAN CORPUSCULAR VOLUME 80.9 FL (78-98); MEAN PLATELET VOLUME 8.3 FL (7.4-10.4); MONOCYTES # (AUTO) 1.1 X10'3 (0-0.9); NEUTROPHILS # (AUTO) 15.7 X10'3 (1.8-7.7); NEUTROPHILS % (AUTO) 87.1 % (42-75); PLATELET COUNT 491 X10'3 (140-440); RED BLOOD COUNT 4.53 X10'6 (4.70-6.10); RED CELL DISTRIBUTION WIDTH 15.8 % (11.5-14.5)
--- NOTE | 2019-06-01 06:30 | NUR ---
Problems reprioritized. Patient report given, questions answered & plan of care reviewed with GILMAR Ann.
[2019-06-01 06:31] LABS: ANION GAP 4 (8-16); BLOOD UREA NITROGEN 28 MG/DL (7-18); BUN/CREATININE RATIO 29.5 (5.4-32.0); CALCIUM 8.1 MG/DL (8.5-10.1); CHLORIDE 100 MMOL/L (99-107); CREATININE 0.95 MG/DL (0.60-1.10); GLUCOSE 112 MG/DL (70-104); MAGNESIUM 2.4 MG/DL (1.5-2.4); PHOSPHORUS 3.1 MG/DL (2.3-4.5); POTASSIUM 3.7 MMOL/L (3.5-5.1); SODIUM 139 MMOL/L (135-145); TOTAL CARBON DIOXIDE 34.7 MMOL/L (24-32); eGFR 80 ML/MIN
--- NOTE | 2019-06-01 06:31 | NUR ---
Patient in room PCU 3019. I have received report from Emma SCHAFER and had the opportunity to ask questions and assume patient care.
[2019-06-01] MEDS: linezolid 600mg tablet PO SCH ×2 (07:23→19:50)
[2019-06-01] MEDS: methylPREDNISolone sod succ 125mg/2ml vial IV SCH ×2 (07:23→19:50)
[2019-06-01] MEDS: docusate sod 100mg capsule PO SCH ×2 (07:23→19:50)
[2019-06-01] MEDS: cefepime 1GM in D5W 50mL 50 ML IV SCH ×2 (07:23→15:08)
[2019-06-01] MEDS: lactobacillus rhamnosus 10,000 MMU CELLS/CAPSULE PO SCH ×2 (07:23→19:50)
[2019-06-01] MEDS: lactose-reduced food (Ensure High Protein) 237ml bottle PO SCH ×3 (08:00→18:00)
[2019-06-01] MEDS ORDERED: enoxaparin 40mg/0.4ml syringe SUBCUT SCH (12:40)
[2019-06-01] MEDS: insulin Lispro (HumaLOG) vial - multi-dose SQ SCH ×2 (13:11→19:44)
[2019-06-01] MEDS: traMADol 50MG tablet PO PRN ×2 (15:08→20:02)
--- NOTE | 2019-06-01 18:14 | NUR ---
Problems reprioritized. Patient report given, questions answered & plan of care reviewed with Bea SCHAFER. Patient stable at time of transfer of care.
--- NOTE | 2019-06-01 18:33 | NUR ---
Patient in room PCU 3019. I have received report from Whitney SCHAFER and had the opportunity to ask questions and assume patient care.
--- NOTE | 2019-06-01 18:33 | NUR ---
[place] documentation: I have reviewed and agree with all interventions, assessments performed and documented by Nan SCHAFER. [place] Medication Administration: For this medication-pass time frame, all medication were reviewed, dispensed, administered and documented per hospital policy by aNn SCHAFER
--- NOTE | 2019-06-01 18:40 | NUR ---
Patient's significant other very upset at this time due to the fact that the patient had not received a dinner tray and had not eaten all day aside from the ensure. It was explained to her that the reason for this is because he was not tolerating being off of the bipap today without desating into the 70's. She was still very upset, saying that he needs his nutrition and she has not been satisfied with the overall experience during his whole stay here and would like move the patient to [place]. Patient and significant other were told that we will order the patient a dinner tray and see how he tolerates eating with his oxygenation. She states that she would just lift the bipap off of his face between bites and put it right back on and this is what she has done before. She was educated about the risks of aspiration with the positive pressure of the bipap and they both verbalized understanding that he must swallow food completely before putting the mask back on.
--- NOTE | 2019-06-01 19:10 | NUR ---
Patient did tolerate his dinner well and ate most of his tray.
[2019-06-01] MEDS: insulin glargine (Lantus) pen - multi-dose SQ SCH (21:35)
[2019-06-02] MEDS: cefepime 1GM in D5W 50mL 50 ML IV SCH (00:11)
[2019-06-02 01:00] VITALS: BP 127/72
--- NOTE | 2019-06-02 01:00 | NUR ---
Patient has been desating on and off through the night. Now his sats were low 80's on bipap 70%FIO2 and so he was increased to 80% FIO2, HOB elevated, and encouraged to cough and deep breath. RT notified and said it is ok to have him on this much oxygen because he does drop at times and to just keep sats 88-92%. Patient is also having some anxiety and hyperventilation and is talked through deep breathing and slowing his respirations and this is helpful.
[2019-06-02] MEDS: ipratropium/albuterol 3ml nebule NEB SCH (02:11)
[2019-06-02 03:00] VITALS: BP 124/67
[2019-06-02] MEDS: HYDROcodone/acetaminophen 10/325mg tab PO PRN (03:01)
[2019-06-02] MEDS ORDERED: epiNEPHrine inj 5 MG in normal saline 250ml IV soln 250 ML IV PRN (04:08)
[2019-06-02] MEDS ORDERED: methylPREDNISolone sod succ 125mg/2ml vial IV ONE (04:10)
[2019-06-02 04:41] LABS: ABG OXYGEN SATURATION 25.3 % (95-98); ABG PH (T) 6.918 (7.350-7.450); ABG PO2 (T) 31.1 mmHg (83-108); FCOHb 0.3 % (0.5-1.5); FLOW 15 L/min; FMetHb 1.2 % (0.3-1.12); FO2Hb 24.9 % (94-100); TOTAL HEMOGLOBIN 11.6 G/dl (14.0-17.9)
[2019-06-02] MEDS ORDERED: DOPamine 400MG/D5W 250ML CRITICAL CARE IV SCH (04:55)
[2019-06-02] MEDS ORDERED: EPICAL 5MG & 1000MG PER 250ML INFUSION IV PRN ×3 (04:55)
[2019-06-02] MEDS ORDERED: 0.9 % SODIUM CHLORIDE 10 ML VIAL ONE (05:00)
[2019-06-02] MEDS ORDERED: epiNEPHrine 1 mg/ml 30ml MDV ONE (05:00)
[2019-06-02] MEDS ORDERED: normal saline 250 ML IV soln ONE (05:00)
--- NOTE | 2019-06-02 06:30 | NUR ---
Patient in room PCU 3019. I have received report from GILMAR Figueredo and had the opportunity to ask questions and assume patient care. Patient is at transfer of care. Awaiting transport by [facility].
--- NOTE | 2019-06-02 06:30 | NUR ---
Patient in room PCU 3019. I have received report from Bea SCHAFER and had the opportunity to ask questions and assume patient care. Patient at transfer of care. Awaiting bean picker from [facility].
--- NOTE | 2019-06-02 07:05 | NUR ---
At 0350 [employer] notified staff that patient's heart rate had dropped down to the 30's. Staff immediately entered patient room and found him non-responsive and with absent pulses. CPR initiated immediately and edgard herron called. ER Doctor Ian up to code along with ICU charge nurse Jonathan and Nurse Practitioner August Leisa. Patient went in and out of getting a pulse back and then going back into asystole. Patient was intubated and bagged by RT. Several ampules of Epinephrine given, also Epi drip hung, Sodium bicarb given, Atropine, Calcium Chloride, and Dobutamine drip hung. External pacing was attempted as well. ABGs taken showing very high CO2 levels and respiratory acidosis. Patient's pupils were fixed and dilated. Unable to obtain a blood pressure. Time of was called at 0440.
--- NOTE | 2019-06-02 07:10 | NUR ---
Prior to the time of arrest, the patient was alert and oriented, showing no signs of somnolence or decline. Staff had been in the room less than an hour before this and his heart rate was not steadily declining, but rather dropped suddenly into the 30's as seen on the tele monitoring and patient was attended to immediately at this time of change when he was found to have no pulse. He was on bipap 80% FIO2 at the time of the arrest.
--- NOTE | 2019-06-02 07:18 | NUR ---
Patient's girlfriend Carolyn was notified at the time of and she was very upset saying, "This [facility] sucks and I should have never left him there." Also patient's daughter Deborah was notified. Neither of them are able to come in at this time. Deborah decided on [facility] in and they were called and will bulk picker the patient but have to come from [place]. [facility] see if they wanted to take the case since the was unexpected and [facility] and they said that this did not need to be a coroners case. At this point all lines were removed and postmortem care performed. Also the donor network was notified and the patient will not be a canidate for donation.
--- NOTE | 2019-06-02 08:00 | NUR ---
[facility]
[2019-06-02 13:24] LABS: ABG PCO2 (T) > 171.0 mmHg (35.0-45.0)
== END 2019-06-02 08:00 | disposition expired | DRG 710 ==
LOC: ER 00:34 → SUR 3N 01:52 → ICU 2S 14:13 → SUR 3N 05-20 16:43 → CICU 2S 05-24 00:10 → SUR 3N 05-26 16:30 → PCU 3S 05-28 10:15
PROVIDERS: ADMIT Internal Medicine
PROC: 0VT90ZZ Resection of Right Testis, Open Approach (ICD-10-PCS; 2019-05-18)
PROC: 0V950ZZ Drainage of Scrotum, Open Approach (ICD-10-PCS; 2019-05-18)
PROC: 0KDM0ZZ Extraction of Perineum Muscle, Open Approach (ICD-10-PCS; 2019-05-18)
PROC: 5A1945Z Respiratory Ventilation, 24-96 Consecutive Hours (ICD-10-PCS; principal; 2019-05-24)
PROC: 0BH17EZ Insertion of Endotracheal Airway into Trachea, Via Natural or Artificial Opening (ICD-10-PCS; 2019-05-24)
PROC: 5A09357 Assistance with Respiratory Ventilation, Less than 24 Consecutive Hours, Continuous Positive Airway Pressure (ICD-10-PCS; 2019-05-28)
PROC: 5A09357 Assistance with Respiratory Ventilation, Less than 24 Consecutive Hours, Continuous Positive Airway Pressure (ICD-10-PCS; 2019-05-29)
PROC: 5A09357 Assistance with Respiratory Ventilation, Less than 24 Consecutive Hours, Continuous Positive Airway Pressure (ICD-10-PCS; 2019-05-30)
PROC: 5A09357 Assistance with Respiratory Ventilation, Less than 24 Consecutive Hours, Continuous Positive Airway Pressure (ICD-10-PCS; 2019-05-31)
PROC: 5A09357 Assistance with Respiratory Ventilation, Less than 24 Consecutive Hours, Continuous Positive Airway Pressure (ICD-10-PCS; 2019-06-01)
PROC: 5A12012 Performance of Cardiac Output, Single, Manual (ICD-10-PCS; 2019-06-02)
PROC: 5A09357 Assistance with Respiratory Ventilation, Less than 24 Consecutive Hours, Continuous Positive Airway Pressure (ICD-10-PCS; 2019-06-02)
DX: A41.02 Sepsis due to Methicillin resistant Staphylococcus aureus (principal); J96.01 Acute respiratory failure with hypoxia; J18.9 Pneumonia, unspecified organism; J90 Pleural effusion, not elsewhere classified; J84.10 Pulmonary fibrosis, unspecified; E87.2 Acidosis; N49.2 Inflammatory disorders of scrotum; F12.90 Cannabis use, unspecified, uncomplicated; S30.22XA Contusion of scrotum and testes, initial encounter; S31.30XA Unspecified open wound of scrotum and testes, initial encounter; I46.9 Cardiac arrest, cause unspecified; E11.65 Type 2 diabetes mellitus with hyperglycemia; R59.0 Localized enlarged lymph nodes; E87.70 Fluid overload, unspecified; I48.91 Unspecified atrial fibrillation; J45.909 Unspecified asthma, uncomplicated; Z87.01 Personal history of pneumonia (recurrent); Y93.I9 Activity, other involving external motion; Y92.89 Other specified places as the place of occurrence of the external cause; Y99.8 Other external cause status; V19.9XXA Pedal cyclist (driver) (passenger) injured in unspecified traffic accident, initial encounter; Z79.899 Other long term (current) drug therapy; Z79.4 Long term (current) use of insulin
CPT/HCPCS: 36415; 36600; 71045; 71250; 76937; 80048; 80053; 80202; 81001; 82803; 82948; 83036; 83605; 83735; 83880; 84100; 84145; 84478; 85018; 85025; 85379; 85610; 85730; 86703; 87040; 87070; 87075; 87077; 87081; 87088; 87102; 87186; 92508; 92616; 92950; 93005; 93306; 94002; 94003; 94640; 94660; 94667; 94668; 94760; 97110; 97116; 97161; 97530; 99285; A4215; A4340; A4618; A7000; C1758; C9113; G0378; J0131; J0171; J0360; J0690; J0692; J1250; J1650; J1815; J1940; J1956; J2001; J2020; J2060; J2175; J2250; J2270; J2405; J2543; J2704; J2710; J2930; J3010; J3370; J3490; J7030; J7050; J7120